=== PATIENT | male | born 1970 | race Caucasian/White ===

== ENCOUNTER 2018-09-11 08:10 | Inpatient (IN) | payer BC, SELFPAY ==
[2018-09-11] MEDS ORDERED: NA CHLORIDE 0.9% 1,000 ML ONE ×2 (09:05→12:06)
[2018-09-11] MEDS ORDERED: ONDANSETRON 4 MG/2 ML VIAL ONE ×2 (09:05→16:36)
[2018-09-11] MEDS ORDERED: FENTANYL CITR 100 MCG/2 ML ONE (09:05)
[2018-09-11 09:41] LABS: Urine Blood TRACE (NEG); Urine Glucose NEGATIVE (NEG); Urine Protein NEGATIVE (NEG)
[2018-09-11 09:47] LABS: Absolute Lymphocytes (CBC) 1.9 K/uL (0.7-4.9); Absolute Monocytes 0.7 K/uL (0.1-1.3); Absolute Neutrophil 8.3 K/uL (1.8-8.0); Basophils % 0.5 % (0-1.3); Eosinophils % 1.6 % (0-4.4); Hematocrit 49.6 % (39.6-49.0); Lymphocytes % 16.9 % (15.3-44.8); MCH 32.1 pg (27.0-35.0); MCV 94.3 fL (80-100); MPV 8.1 fL (7.6-11.3); Monocytes % 6.5 % (3.3-12.3); RBC Red Blood Cell Count 5.26 M/uL (4.33-5.43)
[2018-09-11 10:09] LABS: ALT/SGPT 26 U/L (12-78); AST/SGOT 18 U/L (15-37); Albumin 3.5 g/dL (3.4-5.0); Alkaline Phosphatase 67 U/L (45-117); BUN Blood Urea Nitrogen 9 mg/dL (7-18); Bicarbonate 27 mmol/L (21-32); Bilirubin Direct 0.2 mg/dL (0-0.2); Bilirubin Total 0.6 mg/dL (0.2-1.0); Glucose Level 95 mg/dL (74-106); Lipase 68 U/L (73-393); Potassium 3.9 mmol/L (3.5-5.1); Protein, Total 7.1 g/dL (6.4-8.2); Sodium Level 136 mmol/L (136-145)
--- NOTE | 2018-09-11 11:31 | RAD REPORT ---
EXAM DESCRIPTION: CT - Abdomen Pelvis W Contrast - 09/11/2018 10:56 am CLINICAL HISTORY: Abdominal pain, suprapubic pain COMPARISON: CT dissection imaging January 2014 TECHNIQUE: Biphasic, helical CT imaging of the abdomen and pelvis was performed following 100 ml non -ionic IV contrast. Oral contrast was given. All CT scans are performed using dose optimization technique as appropriate and may include automated exposure control or mA/KV adjustment according to patient size. FINDINGS: No suspicious findings in the lung bases. Liver shows diffuse fatty infiltration pattern with no focal liver lesion. Spleen and pancreas show n o acute findings. Accessory splenic nodules are present. Gallbladder and biliary tree are also withou t suspicious finding. Symmetric renal function is seen with no hydronephrosis or suspicious renal mass. No pyelonephritis o r acute renal parenchymal process. Urinary bladder is contracted. No prostate gland or seminal vesicl e abnormality. Phleboliths are present. No gastric dilatation or wall thickening. No acute small bowel finding. The appendix is normal. From cecum through descending colon no acute colon process seen. In the mid sigmoid colon there is a 3 rachell timeter long segment showing irregular circumferential wall thickening. There is edematous/inflammato ry stranding in the surrounding fat with a small amount of extraluminal air adjacent to the involved colon. More distally the rectum and distal sigmoid colon show no acute findings. Patient has minimal diverticulosis identifiable. No free fluid. No abscess identified. No other site of extraluminal air or inflammatory stranding. No hernia, mass or bulky lymphadenopathy. No adrenal abnormality. No suspicious bony findings. IMPRESSION: Approximately 3 centimeter long segment of sigmoid colon showing irregular circumferenti al wall thickening, adjacent edematous/ inflammatory stranding and a small extraluminal air collectio n adjacent to the involved sigmoid colon. No abscess or distant free air. No extravasation of bowel content visible. Patient has very minimal diverticulosis; however, acute diverticulitis would be the most likely etiol ogy. Infectious colitis is possible. Colon malignancy with contained perforation is a differential co nsideration. Follow-up colonoscopy after medical management of diverticulitis is recommended. Fatty infiltration of the liver.
[2018-09-11] MEDS ORDERED: MEPERIDINE HCL 50 MG/ML AMP ONE (11:40)
--- NOTE | 2018-09-11 11:45 | ER ---
Nurse's Notes [facility] Name: Darvin Paris Age: 48 yrs Sex: Male : 1970 Arrival Date: 09/11/2018 Time: 08:15 Bed 20 Private MD: None, None Diagnosis: Diverticulitis of small intestine without perforation or abscess without bleeding Presentation: 09/11 08:15 Presenting complaint: Patient states: suprapubic pain that began . Pt denies aa5 urinary symptoms, denies N/V/D. 08:15 Transition of care: patient was not received from another setting of care. Onset of aa5 symptoms was August 2018. Risk Assessment: Do you want to hurt yourself or someone else? Patient reports no desire to harm self or others. Initial Sepsis Screen: Does the patient meet any 2 criteria? No. Patient's initial sepsis screen is negative. Does the patient have a suspected source of infection? No. Patient's initial sepsis screen is negative. Care prior to arrival: None. 08:15 Method Of Arrival: Ambulatory aa5 08:15 Acuity: RICHARD 3 aa5 Historical: - Allergies: 08:15 PENICILLINS; aa5 - Home Meds: 08:15 None [Active]; aa5 - PMHx: 08:15 None; aa5 - PSHx: 08:15 Achilles tendon repair; Right hand; aa5 - Immunization history:: Flu vaccine is not up to date. - Social history:: Smoking status: Patient uses tobacco products, smokes one pack cigarettes per day. - Ebola Screening: : No symptoms or risks identified at this time. Screenin:18 Abuse screen: Denies threats or abuse. Denies injuries from another. Nutritional bp screening: No deficits noted. Tuberculosis screening: No symptoms or risk factors identified. Fall Risk None identified. Assessment: 08:30 General: Appears in no apparent distress. uncomfortable, Behavior is calm, cooperative, bp appropriate for age. Pain: Complains of pain in right lower quadrant. Neuro: Level of Consciousness is awake, alert, obeys commands, Oriented to person, place, time, situation, Appropriate for age. Cardiovascular: No deficits noted. Respiratory: Airway is patent Respiratory effort is even, unlabored, Respiratory pattern is regular, symmetrical. GI: Bowel sounds present X 4 quads. Abd is soft X 4 quads Abdomen is tender to palpation in suprapubic area and right lower quadrant. : No signs and/or symptoms were reported regarding the genitourinary system. EENT: No deficits noted. Derm: No deficits noted. Musculoskeletal: Circulation, motion, and sensation intact. Range of motion: intact in all extremities. 09:16 Reassessment: PO CONTRAST COMPLETED, CT NOTIFIED. bp 10:49 Reassessment: PT TO CT WITH BANQUET LINE COOK. bp 12:30 Reassessment: ADMIT FOR DIVERTICULITIS IN PROCESS. bp 14:20 Reassessment: VS STABLE ON MONITOR, NO ACUTE S/S AT THIS TIME. bp Vital Signs: 08:18 BP 165 / 93; Pulse 79; Resp 16 S; Temp 98.1(O); Pulse Ox 99% on R/A; Weight 81.65 kg aa5 (R); Height 5 ft. 9 in. (175.26 cm) (R); Pain 8/10; 09:45 BP 146 / 110; Pulse 80; Resp 16; Pulse Ox 97% ; bp 10:50 BP 160 / 108; Pulse 84; Resp 16; Pulse Ox 98% ; bp 12:30 BP 153 / 92; Pulse 83; Resp 16; Pulse Ox 95% ; bp 14:19 BP 135 / 100; Pulse 95; Resp 14; Pulse Ox 99% ; bp 08:18 Body Mass Index 26.58 (81.65 kg, 175.26 cm) aa5 ED Course: 08:15 Patient arrived in ED. mr 08:15 None, None is Private Physician. mr 08:15 Arm band placed on. aa5 08:15 Patient placed in an exam room, on a stretcher. aa5 08:16 Vitaliy Castro, TIFFANIE is Primary Nurse. bp 08:18 Nikolay Bowie PA is PHCP. jr8 08:18 Triage completed. aa5 08:19 Pelon Rollins MD is Attending Physician. jr8 09:16 Inserted saline lock: 20 gauge in right antecubital area, using aseptic technique. bp Blood collected. 09:18 Patient has correct armband on for positive identification. Placed in gown. Bed in low bp position. Call light in reach. Side rails up X2. 10:53 CT completed. Patient moved to CT via wheelchair. Patient moved back from CT. cw1 10:56 CT Abd/Pelvis - W/Contrast In Process Unspecified. EDMS 11:44 Alex Lin MD is Hospitalizing Provider. jr8 18:00 No provider procedures requiring assistance completed. Patient admitted, IV remains in bp place. Administered Medications: 09:19 Drug: fentaNYL (PF) 50 mcg Route: IVP; Site: right antecubital; bp 10:48 Follow up: Response: Pain is decreased bp 09:19 Drug: Zofran 4 mg Route: IVP; Site: right antecubital; bp 10:49 Follow up: Response: Nausea is decreased bp 09:19 Drug: NS 0.9% 1000 ml Route: IV; Rate: 1000 ml; Site: right antecubital; bp 11:00 Follow up: IV Status: Completed infusion; IV Intake: 1000ml bp 10:50 Drug: fentaNYL (PF) 50 mcg Route: IVP; Site: right antecubital; bp 11:38 Follow up: Response: Pain is decreased bp 11:39 Drug: Demerol 50 mg Route: IVP; Site: right antecubital; bp 11:46 Follow up: Response: Pain is decreased bp 11:45 Drug: Ciprofloxacin 400 mg Volume: 200 ml; Route: IVPB; Infused Over: 60 mins; Site: bp right antecubital; 12:45 Follow up: IV Status: Completed infusion; IV Intake: 200ml bp 11:50 Drug: NS 0.9% 1000 ml Route: IV; Rate: 100 ml/hr; Site: right antecubital; bp 16:27 Follow up: IV Status: Infusion continued upon admission bp 13:00 Drug: Flagyl 500 mg Volume: 100 ml; Route: IVPB; Rate: 200 ml/hr; Infused Over: 30 bp mins; Site: right antecubital; 14:00 Follow up: IV Status: Completed infusion; IV Intake: 100ml bp Intake: 11:00 IV: 1000ml; Total: 1000ml. bp 12:45 IV: 200ml; Total: 1200ml. bp 14:00 IV: 100ml; Total: 1300ml. bp Outcome: 11:44 Decision to Hospitalize by Provider. jr8 18:00 Admitted to Med/surg accompanied by tech, via wheelchair, room 420, with chart, Report bp called to ELENI MORENO 18:00 Condition: stable 18:00 Instructed on the need for admit. 18:06 Patient left the ED. bp Signatures: Dispatcher [employer] IWRIN RiosCeli SowAngelika rice, RN RN aa5 Myriam Mendosa cw1 Nikolay Bowie PA PA jr8 Vitaliy Castro, TIFFANIE RN bp Corrections: (The following items were deleted from the chart) 08:24 08:22 Triage completed. aa5 aa5
--- NOTE | 2018-09-11 11:45 | EDPHYS ---
Physician Documentation [facility] Name: Darvin Paris Age: 48 yrs Sex: Male : 1970 Arrival Date: 09/11/2018 Time: 08:15 Bed 20 Private MD: None, None ED Physician Pelon Rollins HPI: 09/11 08:50 This 48 yrs old Male presents to ER via Ambulatory with complaints of jr8 Abdominal Pain. 08:50 The patient presents with abdominal pain in the lower abdomen. Onset: The jr8 symptoms/episode began/occurred acutely, 2 day(s) ago. The symptoms do not radiate. Associated signs and symptoms: Pertinent positives: fever, Pertinent negatives: nausea, vomiting, and diarrhea. The symptoms are described as sharp, stabbing, waxing/waning. Modifying factors: The symptoms are alleviated by nothing, the symptoms are aggravated by nothing. Severity of pain: At its worst the pain was moderate in the emergency department the pain is unchanged. The patient has not experienced similar symptoms in the past. The patient has not recently seen a physician. Historical: - Allergies: 08:15 PENICILLINS; aa5 - Home Meds: 08:15 None [Active]; aa5 - PMHx: 08:15 None; aa5 - PSHx: 08:15 Achilles tendon repair; Right hand; aa5 - Immunization history:: Flu vaccine is not up to date. - Social history:: Smoking status: Patient uses tobacco products, smokes one pack cigarettes per day. - Ebola Screening: : No symptoms or risks identified at this time. ROS: 08:50 Eyes: Negative for injury, pain, redness, and discharge, ENT: Negative for injury, jr8 pain, and discharge, Neck: Negative for injury, pain, and swelling, Cardiovascular: Negative for chest pain, palpitations, and edema, Respiratory: Negative for shortness of breath, cough, wheezing, and pleuritic chest pain, Back: Negative for injury and pain, MS/Extremity: Negative for injury and deformity, Skin: Negative for injury, rash, and discoloration, Neuro: Negative for headache, weakness, numbness, tingling, and seizure. 08:50 Abdomen/GI: Positive for abdominal pain, Negative for nausea, vomiting, and diarrhea, constipation, abdominal distension, hematemesis, black/tarry stool, rectal pain, rectal bleeding, bowel incontinence, flatulence. Exam: 08:50 Eyes: Pupils equal round and reactive to light, extra-ocular motions intact. Lids and jr8 lashes normal. Conjunctiva and sclera are non-icteric and not injected. Cornea within normal limits. Periorbital areas with no swelling, redness, or edema. ENT: Nares patent. No nasal discharge, no septal abnormalities noted. Tympanic membranes are normal and external auditory canals are clear. Oropharynx with no redness, swelling, or masses, exudates, or evidence of obstruction, uvula midline. Mucous membranes moist. Neck: Trachea midline, no thyromegaly or masses palpated, and no cervical lymphadenopathy. Supple, full range of motion without nuchal rigidity, or vertebral point tenderness. No Meningismus. Cardiovascular: Regular rate and rhythm with a normal S1 and S2. No gallops, murmurs, or rubs. Normal PMI, no JVD. No pulse deficits. Respiratory: Lungs have equal breath sounds bilaterally, clear to auscultation and percussion. No rales, rhonchi or wheezes noted. No increased work of breathing, no retractions or nasal flaring. Back: No spinal tenderness. No costovertebral tenderness. Full range of motion. Skin: Warm, dry with normal turgor. Normal color with no rashes, no lesions, and no evidence of cellulitis. MS/ Extremity: Pulses equal, no cyanosis. Neurovascular intact. Full, normal range of motion. Neuro: Awake and alert, GCS 15, oriented to person, place, time, and situation. Cranial nerves II-XII grossly intact. Motor strength 5/5 in all extremities. Sensory grossly intact. Cerebellar exam normal. Normal gait. 08:50 Abdomen/GI: Inspection: abdomen appears normal, Bowel sounds: active, all quadrants, Palpation: soft, in all quadrants, moderate abdominal tenderness, in the right lower quadrant, mass, is not appreciated, rebound tenderness, is not appreciated, voluntary guarding, is not appreciated, involuntary guarding, is not appreciated, no appreciated organomegaly, Indicators: McBurney's point is tender, Estevez's sign is negative, Rovsing's sign is negative, Obturator sign is positive, Psoas sign is positive, Liver: tenderness, is not appreciated. Vital Signs: 08:18 BP 165 / 93; Pulse 79; Resp 16 S; Temp 98.1(O); Pulse Ox 99% on R/A; Weight 81.65 kg aa5 (R); Height 5 ft. 9 in. (175.26 cm) (R); Pain 8/10; 09:45 BP 146 / 110; Pulse 80; Resp 16; Pulse Ox 97% ; bp 10:50 BP 160 / 108; Pulse 84; Resp 16; Pulse Ox 98% ; bp 12:30 BP 153 / 92; Pulse 83; Resp 16; Pulse Ox 95% ; bp 14:19 BP 135 / 100; Pulse 95; Resp 14; Pulse Ox 99% ; bp 08:18 Body Mass Index 26.58 (81.65 kg, 175.26 cm) aa5 MDM: 08:19 Patient medically screened. 8 11:43 Data reviewed: vital signs, nurses notes, lab test result(s), radiologic studies, CT jr8 scan, and as a result, I will admit patient. Data interpreted: Pulse oximetry: on room air is 98 %. Interpretation: normal. Counseling: I had a detailed discussion with the patient and/or guardian regarding: the historical points, exam findings, and any diagnostic results supporting the discharge/admit diagnosis, lab results, radiology results, the need for further work-up and treatment in the hospital. Physician consultation: Alex Lin MD was called at 11:44, was contacted at 11:44, regarding admission, to the medical/surgical unit. and will see patient. 09/11 08:52 Order name: Basic Metabolic Panel; Complete Time: 10:40 [facility] 09/11 08:52 Order name: CBC with Diff; Complete Time: 09:55 8 09/11 08:52 Order name: Creatinine for Radiology; Complete Time: 10:40 8 09/11 08:52 Order name: Hepatic Function; Complete Time: 10:40 8 09/11 08:52 Order name: Lipase; Complete Time: 10:40 [facility] 09/11 09:22 Order name: Urine Dipstick--Ancillary (enter results); Complete Time: 09:42 eb 09/11 08:53 Order name: CT Abd/Pelvis - W/Contrast; Complete Time: 11:35 8 09/11 08:52 Order name: IV Saline Lock; Complete Time: 09:19 09/11 08:52 Order name: Labs collected and sent; Complete Time: 09/11 08:52 Order name: Urine Dipstick-Ancillary (obtain specimen); Complete Time: 09/11 12:00 Order name: CONS Physician Consult EDMS Administered Medications: : Drug: fentaNYL (PF) 50 mcg Route: IVP; Site: right antecubital; bp 10:48 Follow up: Response: Pain is decreased bp 09:19 Drug: Zofran 4 mg Route: IVP; Site: right antecubital; bp 10:49 Follow up: Response: Nausea is decreased bp 09:19 Drug: NS 0.9% 1000 ml Route: IV; Rate: 1000 ml; Site: right antecubital; bp 11:00 Follow up: IV Status: Completed infusion; IV Intake: 1000ml bp 10:50 Drug: fentaNYL (PF) 50 mcg Route: IVP; Site: right antecubital; bp 11:38 Follow up: Response: Pain is decreased bp 11:39 Drug: Demerol 50 mg Route: IVP; Site: right antecubital; bp 11:46 Follow up: Response: Pain is decreased bp 11:45 Drug: Ciprofloxacin 400 mg Volume: 200 ml; Route: IVPB; Infused Over: 60 mins; Site: bp right antecubital; 12:45 Follow up: IV Status: Completed infusion; IV Intake: 200ml bp 11:50 Drug: NS 0.9% 1000 ml Route: IV; Rate: 100 ml/hr; Site: right antecubital; bp 16:27 Follow up: IV Status: Infusion continued upon admission bp 13:00 Drug: Flagyl 500 mg Volume: 100 ml; Route: IVPB; Rate: 200 ml/hr; Infused Over: 30 bp mins; Site: right antecubital; 14:00 Follow up: IV Status: Completed infusion; IV Intake: 100ml bp Disposition: 09/11/18 11:44 Hospitalization ordered by Alex Lin for Inpatient Admission. Preliminary diagnosis is Diverticulitis of small intestine without perforation or abscess without bleeding. - Bed requested for Telemetry/MedSurg (Inpatient). - Status is Inpatient Admission. bp - Condition is Stable. - Problem is new. - Symptoms have improved. UTI on Admission? No Addendum: 09/13/2018 15:16 Co-signature as Attending Physician, Pelon Rollins MD. g s Signatures: Dispatcher [employer] EDMS Angelika Sow, RN RN aa5 Nikolay Bowie PA PA jr8 Pelon Rollins MD MD Vitaliy Castro, RN RN bp Tamara Honeycutt Corrections: (The following items were deleted from the chart) 09/11 17:00 11:44 Hospitalization Ordered by Alex Lin MD for Inpatient Admission. eb Preliminary diagnosis is Diverticulitis of small intestine without perforation or abscess without bleeding. Bed requested for Telemetry/MedSurg (Inpatient). Status is Inpatient Admission. Condition is Stable. Problem is new. Symptoms have improved. UTI on Admission? No. jr8 18:06 17:00 09/11/2018 11:44 Hospitalization Ordered by Alex Lin MD for Inpatient bp Admission. Preliminary diagnosis is Diverticulitis of small intestine without perforation or abscess without bleeding. Bed requested for Telemetry/MedSurg (Inpatient). Status is Inpatient Admission. Condition is Stable. Problem is new. Symptoms have improved. UTI on Admission? No. eb
[2018-09-11] MEDS ORDERED: METRONIDAZOLE 500mg IVPB 500 MG/100 ML BAG IV ONE ×2 (12:06→16:36)
[2018-09-11] MEDS ORDERED: CIPROFLOXACIN 400mg IV 400 MG/200 ML BAG IV ONE (12:06)
[2018-09-11] MEDS ORDERED: ONDANSETRON 4 MG/2 ML VIAL IV PRN ×2 (14:03→18:08)
[2018-09-11] MEDS: METRONIDAZOLE 500mg IVPB 500 MG/100 ML BAG IV SCH (16:35)
[2018-09-11] MEDS: MORPHINE 4 MG/ML SYR IM PRN ×2 (16:35→21:32)
[2018-09-11] MEDS ORDERED: MORPHINE 4 MG/ML SYR ONE (16:36)
[2018-09-11] MEDS ORDERED: INFLUENZA VACCINE (for 3y+) 0.5 ML DOSE IMVAC ONE (17:00)
[2018-09-11] MEDS: NA CHLORIDE 0.9% 1,000 ML IV SCH (18:19)
[2018-09-11] MEDS: CIPROFLOXACIN 400mg IV 400 MG/200 ML BAG IV SCH (20:09)
[2018-09-11] MEDS: ACETAMINOPHEN 325 MG TABLET PO PRN (20:09)
[2018-09-11] MEDS ORDERED: CIPROFLOXACIN 400mg IV 400 MG/200 ML BAG IV SCH (21:00)
[2018-09-12] MEDS: METRONIDAZOLE 500mg IVPB 500 MG/100 ML BAG IV SCH ×3 (00:36→16:58)
[2018-09-12] MEDS: NA CHLORIDE 0.9% 1,000 ML IV SCH ×3 (00:37→16:58)
[2018-09-12] MEDS: ACETAMINOPHEN 325 MG TABLET PO PRN ×4 (01:51→17:12)
[2018-09-12] MEDS: MORPHINE 4 MG/ML SYR IM PRN (02:47)
--- NOTE | 2018-09-12 04:24 | P.HP ---
Certification for Inpatient Patient admitted to: Inpatient With expected LOS: >2 Midnights Patient will require the following post-hospital care: None Practitioner: I am a practitioner with admitting privileges, knowledge of patient current condition, hospital course, and medical plan of care. Services: Services provided to patient in accordance with Admission requirements found in Title 42 Section 412.3 of the Code of Federal Regulations Patient History Date of Service: 09/11/18 Reason for admission: Abdominal pain History of Present Illness: Patient is a 40-year-old gentleman who came into the hospital with abdominal discomfort. Pain was mainly in the right lower quadrant. Patient had fever, shakes, and chills. Patient was having nausea and vomiting. Patient states he was having some discomfort 2 days ago in his symptoms have gradually worsened. CT in the emergency room revealed colitis. Patient was admitted to the hospital and will need IV antibiotics. Patient will also need IV hydration. Patient will need outpatient colonoscopy. Start clear liquid diet in the morning. Allergies No Known Allergies Allergy (Verified 09/11/18 13:22) Home Medications: NK [No Home Meds] 09/11/18 - Past Medical/Surgical History Past Medical History: Patient denies medical history Past Surgical History: Patient denies surgical history - Family History Father Family History: Reviewed- Non-Contributory - Social History Smoking Status: Never smoker Alcohol use: No CD- Drugs: No Place of Residence: Home Review of Systems 10-point ROS is otherwise unremarkable Physical Examination - Vital Signs Temperature: 98.6 F Blood Pressure: 114/62 Pulse: 78 Respirations: 18 Pulse Ox (%): 97 - Physical Exam General: Alert, In no apparent distress, Oriented x3 HEENT: Atraumatic, PERRLA, Mucous membr. moist/pink, EOMI, Sclerae nonicteric Neck: Supple, 2+ carotid pulse no bruit, No LAD, Without JVD or thyroid abnormality Respiratory: Clear to auscultation bilaterally, Normal air movement Cardiovascular: Regular rate/rhythm, Normal S1 S2, No murmurs Gastrointestinal: Normal bowel sounds, Soft and benign, No rebound, No guarding , Distended, Tenderness Musculoskeletal: No clubbing, No swelling, No tenderness Integumentary: No rashes Neurological: Normal gait, Normal speech, Normal strength at 5/5 x4 extr, Normal tone, Sensation intact, Cranial nerves 3-12 intact, Normal affect Lymphatics: No axilla or inguinal lymphadenopathy - Studies Laboratory Data (last 24 hrs) 09/11/18 09:15: Creatinine 0.90 09/11/18 09:15: WBC 11.1 H, Hgb 16.9, Hct 49.6 H, Plt Count 168 09/11/18 09:15: Sodium 136, Potassium 3.9, BUN 9, Creatinine 0.90, Glucose 95, Total Bilirubin 0.6, AST 18, ALT 26, Alkaline Phosphatase 67, Lipase 68 L Assessment & Plan - Problems (Diagnosis) (1) Diverticulitis Current Visit: Yes Status: Acute - Plan 1. Continue with IV hydration 2. Continue with IV antibiotics 3. Continue with pain control 4. NPO; clear liquid diet in morning 5. General surgery consultation; outpatient colonoscopy in 6-12 weeks 6. Serial H&H, and we will monitor CBC, BMP, LFTs and lipase along with electrolytes. 7. GI and DVT prophylaxis - Advance Directives Does patient have a Living Will: No Does patient have a Durable POA for Healthcare: No - Code Status/Comfort Care Code Status Assessed: Yes Code Status: Full Code Critical Care: No Time Spent Managing PTS Care (In Minutes): 50
[2018-09-12] MEDS: CIPROFLOXACIN 400mg IV 400 MG/200 ML BAG IV SCH ×2 (08:01→20:21)
[2018-09-12] MEDS ORDERED: MEPERIDINE HCL 25 MG/0.5 ML IVP PRN (12:41)
[2018-09-12 13:28] LABS: Absolute Lymphocytes (CBC) 1.6 K/uL (0.7-4.9); Absolute Monocytes 0.9 K/uL (0.1-1.3); Absolute Neutrophil 9.5 K/uL (1.8-8.0); Basophils % 0.5 % (0-1.3); Eosinophils % 1.2 % (0-4.4); Hematocrit 44.1 % (39.6-49.0); Lymphocytes % 12.8 % (15.3-44.8); MCV 94.3 fL (80-100); Monocytes % 7.3 % (3.3-12.3); RBC Red Blood Cell Count 4.68 M/uL (4.33-5.43)
[2018-09-12 13:47] LABS: ALT/SGPT 21 U/L (12-78); AST/SGOT 13 U/L (15-37); Albumin 3.1 g/dL (3.4-5.0); Alkaline Phosphatase 55 U/L (45-117); BUN Blood Urea Nitrogen 7 mg/dL (7-18); Bicarbonate 26 mmol/L (21-32); Bilirubin Total 0.9 mg/dL (0.2-1.0); Glucose Level 102 mg/dL (74-106); Protein, Total 6.5 g/dL (6.4-8.2); Sodium Level 133 mmol/L (136-145)
--- NOTE | 2018-09-12 20:45 | PN ---
Subjective: The patient currently lying in bed. He is complaining of significant abdominal pain in the epigastric area. He is on thin liquids. He has no nausea and no vomiting. He is not able to to lerate morphine due to the headache. No bowel movement this morning. Review of Systems: Otherwise, negative. Physical Examination: VITAL SIGNS: Blood pressure is 124/78, respiratory rate 18, pulse 78, temperature 100.7. GENERAL: The patient is alert and oriented x3. Does not look in any distress. HEENT: Atraumatic, normocephalic. PERRLA. Oral mucosa is moist. NECK: Supple. No JVD. No bruits. CHEST: Clear to auscultation. Good air entry. HEART: Regular rate and rhythm. S1, S2 normal. No gallop or murmur. ABDOMEN: Soft with diffuse tenderness to palpation. There is no guarding or rebound. Positive eduin l sounds. EXTREMITIES: No clubbing, cyanosis, or edema. No calf tenderness. NEUROLOGIC: Grossly intact. Cranial nerve 2 through 12 intact. Normal sensation. Normal reflexes. Normal muscle strength. Laboratory Data: Labs this morning pending. Yesterday, his white blood cells were at 11.1. Otherwi se, the rest of his labs were fine. Assessment And Plan: 1.Acute onset of . At this point, we will continue the patient on IV fluids. Continue IV antibiotic with Cipro and Flagyl and continue hydration with IV fluids. 2.Abdominal pain likely secondary to diverticulitis. The patient will be continued on pain medicati on. I will switch his morphine to demerol. 3.Clear liquid diet if the patient tolerates diet, we will continue. 4.Symptomatic treatment for nausea if needed . 5.DVT prophylaxis. The patient is young, I will not start him on Lovenox at this point. LONG/ALBAN Voice ID: [id number] Report ID: [id number]
[2018-09-12] MEDS: MEPERIDINE HCL 50 MG/ML AMP IV PRN (20:56)
--- NOTE | 2018-09-12 22:00 | P.CNS ---
Date of Consult: 09/12/18 PC: This 48-year-old male presents emergency room with severe lower abdominal pain for diagnosis and treatment. HPC: Patient been at home, but psyllium began to feel the sensation in the lower portion of his abdomen just below the umbilicus of intense pressure and hard cramping abdominal pain. Pain has been constant since then. Describes it as sharp, radiating into his back. PMH: Negative PSHx: Denies any prior surgery SOC: No known allergy SYS REVIEW: No cough, wheeze, shortness of breath. No chest pain or palpitations. Never experienced any pain like this before. No nausea or vomiting, no diarrhea O/E awake alert on come HEENT: No evidence of jaundice Chest: Chest movement equal bilaterally ABD: Soft but does have tenderness in the region between the pubic bone and the umbilicus LOCO: Intact DATA: Elevated white cell count, CT scan demonstrates microperforation of the sigmoid coal IMPRESSION: Diverticulitis with micro perforation, no evidence of any abscess or free fluid PLAN: Patient is currently on antibiotics, I will let him have have limited clear liquids, he is on IV antibiotics and feels better today but is still in significant discomfort. I have also changed his pain medicines so he gets some effective relief from his discomfort.
[2018-09-13] MEDS: METRONIDAZOLE 500mg IVPB 500 MG/100 ML BAG IV SCH ×3 (00:20→17:39)
[2018-09-13] MEDS: MEPERIDINE HCL 50 MG/ML AMP IV PRN ×4 (03:39→20:33)
[2018-09-13] MEDS: NA CHLORIDE 0.9% 1,000 ML IV SCH ×3 (03:46→17:36)
[2018-09-13 04:22] LABS: Absolute Lymphocytes (CBC) 1.5 K/uL (0.7-4.9); Absolute Monocytes 0.8 K/uL (0.1-1.3); Absolute Neutrophil 8.1 K/uL (1.8-8.0); Basophils % 0.7 % (0-1.3); Eosinophils % 1.9 % (0-4.4); Hematocrit 41.4 % (39.6-49.0); Lymphocytes % 14.3 % (15.3-44.8); MCH 32.6 pg (27.0-35.0); MCV 93.5 fL (80-100); MPV 8.2 fL (7.6-11.3); Monocytes % 7.7 % (3.3-12.3); RBC Red Blood Cell Count 4.42 M/uL (4.33-5.43)
[2018-09-13 04:35] LABS: ALT/SGPT 19 U/L (12-78); AST/SGOT 12 U/L (15-37); Alkaline Phosphatase 51 U/L (45-117); BUN Blood Urea Nitrogen 7 mg/dL (7-18); Bicarbonate 24 mmol/L (21-32); Bilirubin Total 1.1 mg/dL (0.2-1.0); Glucose Level 86 mg/dL (74-106); Protein, Total 6.4 g/dL (6.4-8.2); Sodium Level 136 mmol/L (136-145)
[2018-09-13] MEDS: CIPROFLOXACIN 400mg IV 400 MG/200 ML BAG IV SCH ×2 (08:27→20:39)
--- NOTE | 2018-09-13 16:58 | P.PN ---
Date of Service: 09/13/18 S: Patient feels much better today, no longer has the burning pain, fine disease review get up and move around today. Tolerating a full liquid diet. Pain is much better controlled with the Demerol. O: Vital signs remain stable, patient is afebrile has not had any temperature fever for last 24 hr. Abdomen is soft, minimal does come A: Surgically much improved P: Will advance to regular diet in the a.m.. If tolerated may be candid for early discharge on oral antibiotics.
--- NOTE | 2018-09-13 18:25 | P.PN ---
Subjective Date of Service: 09/13/18 Chief Complaint: Abdominal pain Patient seen and examined at bedside. Case discussed with nursing staff. Reports improved abdominal pain. Review of Systems As noted above Physical Examination - Vital Signs Temperature: 98.8 F Blood Pressure: 131/75 Pulse: 77 Respirations: 18 Pulse Ox (%): 96 - Physical Exam General: Alert, In no apparent distress HEENT: Atraumatic, PERRLA, EOMI Neck: Supple, JVD not distended Respiratory: Clear to auscultation bilaterally, Normal air movement Cardiovascular: Regular rate/rhythm, Normal S1 S2 Gastrointestinal: Normal bowel sounds, Tenderness (Diffuse, mild) Musculoskeletal: No tenderness Integumentary: No rashes Neurological: Normal speech, Normal tone, Normal affect Lymphatics: No axilla or inguinal lymphadenopathy Assessment And Plan - Plan Acute diverticulitis: Continue IV fluids, IV antibiotics with Cipro and Flagyl. Advance diet as tolerated. - abdominal pain likely secondary to diverticulitis. Pain control with Demerol - Zofran for nausea - surgeon consulted, recommendations appreciated.
[2018-09-14] MEDS: METRONIDAZOLE 500mg IVPB 500 MG/100 ML BAG IV SCH ×3 (00:39→17:40)
[2018-09-14] MEDS: MEPERIDINE HCL 50 MG/ML AMP IV PRN ×3 (02:26→20:34)
[2018-09-14] MEDS: NA CHLORIDE 0.9% 1,000 ML IV SCH ×3 (06:36→17:42)
[2018-09-14] MEDS: CIPROFLOXACIN 400mg IV 400 MG/200 ML BAG IV SCH ×2 (09:18→20:33)
[2018-09-14 11:24] LABS: ALT/SGPT 22 U/L (12-78); AST/SGOT 20 U/L (15-37); Albumin 3.3 g/dL (3.4-5.0); Alkaline Phosphatase 56 U/L (45-117); BUN Blood Urea Nitrogen 6 mg/dL (7-18); Bicarbonate 26 mmol/L (21-32); Bilirubin Total 0.8 mg/dL (0.2-1.0); Glucose Level 106 mg/dL (74-106); Potassium 4.1 mmol/L (3.5-5.1); Protein, Total 7.1 g/dL (6.4-8.2); Sodium Level 137 mmol/L (136-145)
--- NOTE | 2018-09-14 14:28 | P.PN ---
Date of Service: 09/14/18 S: Patient continues to improve. Was started on a soft GI diet but had recurrence of his cramping pain. Will back off to full liquids again. He remains afebrile O: Vital signs are stable, white cell count coming back to normal. Abdominal exam minimal lower abdominal tenderness A: Surgically stable P: Continue conservative therapy. Will not require surgery during this hospital stay. The discharge when tolerating regular diet on oral medications.
--- NOTE | 2018-09-14 17:13 | P.PN ---
Subjective Date of Service: 09/14/18 Chief Complaint: Abdominal pain Patient seen and examined at bedside. Case discussed with nursing staff. Reports improved abdominal pain. Review of Systems As noted above Physical Examination - Vital Signs Temperature: 98.0 F Blood Pressure: 140/70 Pulse: 76 Respirations: 18 Pulse Ox (%): 95 - Physical Exam General: Alert, In no apparent distress HEENT: Atraumatic, PERRLA, EOMI Neck: Supple, JVD not distended Respiratory: Clear to auscultation bilaterally, Normal air movement Cardiovascular: Regular rate/rhythm, Normal S1 S2 Gastrointestinal: Normal bowel sounds, Tenderness, Guarding Musculoskeletal: No tenderness Integumentary: No rashes Neurological: Normal speech, Normal tone, Normal affect Lymphatics: No axilla or inguinal lymphadenopathy Assessment And Plan - Plan Acute diverticulitis: Continue IV fluids, IV antibiotics with Cipro and Flagyl. Tried regular diet this morning, unable to tolerate times was having abdominal cramping and nausea. Will change to soft diet, Advance diet as tolerated. - abdominal pain likely secondary to diverticulitis. Pain control with Demerol - Zofran for nausea - surgeon consulted, recommendations appreciated. Disposition: Medical management, likely no surgical intervention during this hospitalization. Pending symptomatic improvement
[2018-09-15] MEDS: NA CHLORIDE 0.9% 1,000 ML IV SCH ×2 (00:11→10:08)
[2018-09-15] MEDS: METRONIDAZOLE 500mg IVPB 500 MG/100 ML BAG IV SCH ×2 (00:11→08:25)
[2018-09-15] MEDS: CIPROFLOXACIN 400mg IV 400 MG/200 ML BAG IV SCH (08:26)
[2018-09-15] MEDS: MEPERIDINE HCL 50 MG/ML AMP IV PRN (10:59)
--- NOTE | 2018-09-15 14:46 | P.DS ---
Admission Date: 09/11/18 Discharge Date: 09/15/18 Disposition: ROUTINE DISCHARGE Discharge Condition: GOOD Reason for Admission: Abdominal pain Consultations: General Surgery, Dr. Burch Brief History of Present Illness: Patient is a 40-year-old gentleman who came into the hospital with abdominal discomfort. Pain was mainly in the right lower quadrant. Patient had fever, shakes, and chills. Patient was having nausea and vomiting. Patient states he was having some discomfort 2 days ago in his symptoms have gradually worsened. CT in the emergency room revealed colitis. Patient was admitted to the hospital and will need IV antibiotics. Patient will also need IV hydration. Patient will need outpatient colonoscopy. Start clear liquid diet in the morning. Hospital Course: Patient was admitted for acute diverticulitis. He was started on IV fluids, IV antibiotics with Cipro and Flagyl. His pain was controlled with IV pain medication. He was kept NPO on admission. General surgery was consulted, no surgical intervention was planned inpatient. He will need outpatient colonoscopy in 6-12 weeks. His electrolytes, lipase and LFTs were monitored along with this H&H. He remained stable otherwise throughout the hospitalization. The he was started on a clear liquid diet, advanced to full and eventually to soft diet. At the time of discharge, he was tolerating a GI soft diet without any abdominal cramping pain or nausea/vomiting. He was instructed to follow up with Dr. Sarah outpatient for a colonoscopy in 6-12 weeks. Vital Signs/Physical Exam: Temp Pulse Resp BP Pulse Ox 98.6 F 78 18 140/101 H 94 09/15/18 12:00 09/15/18 12:00 09/15/18 12:00 09/15/18 12:00 09/15/18 12:00 General: Alert, In no apparent distress HEENT: Atraumatic, PERRLA, EOMI Neck: Supple, JVD not distended Respiratory: Clear to auscultation bilaterally, Normal air movement Cardiovascular: Regular rate/rhythm, Normal S1 S2 Gastrointestinal: Normal bowel sounds, No tenderness Musculoskeletal: No tenderness Integumentary: No rashes Neurological: Normal speech, Normal tone, Normal affect Laboratory Data at Discharge: WBC 10.7 K/uL (4.3-10.9) 09/13/18 03:39 Hgb 14.4 g/dL (13.6-17.9) 09/13/18 03:39 Hct 41.4 % (39.6-49.0) 09/13/18 03:39 Plt Count 167 K/uL (152-406) 09/13/18 03:39 Sodium 137 mmol/L (136-145) 09/14/18 10:56 Potassium 4.1 mmol/L (3.5-5.1) 09/14/18 10:56 BUN 6 mg/dL (7-18) L 09/14/18 10:56 Creatinine 0.80 mg/dL (0.55-1.3) 09/14/18 10:56 Glucose 106 mg/dL (74-106) 09/14/18 10:56 Total Bilirubin 0.8 mg/dL (0.2-1.0) 09/14/18 10:56 AST 20 U/L (15-37) 09/14/18 10:56 ALT 22 U/L (12-78) 09/14/18 10:56 Alkaline Phosphatase 56 U/L (45-117) 09/14/18 10:56 Lipase 68 U/L (73-393) L 09/11/18 09:15 Home Medications: NK [No Home Meds] 09/11/18 Patient Discharge Instructions: Please follow up with primary care physician in 1 week. Please follow up with Dr. tafoya in 6-12 weeks for outpatient colonoscopy. Diet: soft, advance as tolerated Activity: Ad noemi Physician Review: Patient Assessed, Agree with Above Assessment and Plan Time spent managing pt's care (in minutes): 50
== END 2018-09-15 16:06 | disposition home or self-care (01) | DRG 392 ==
LOC: ER 08:10 → ERHOLD 11:52 → 4TH 18:01
PROVIDERS: ADMIT Internal Medicine; ATTEND Family Medicine
DX: K57.92 Diverticulitis of intestine, part unspecified, without perforation or abscess without bleeding (principal); Z88.0 Allergy status to penicillin; F17.210 Nicotine dependence, cigarettes, uncomplicated
CPT/HCPCS: 36415; 74177; 80048; 80053; 80076; 81003; 82274; 83690; 85025; 87493; 96361; 96365; 96367; 96375; 99285; J0744; J2175; J2405; J3010; J7030; Q9967

== ENCOUNTER 2018-09-17 09:41 | Emergency (ER) | payer BC ==
[2018-09-17] MEDS ORDERED: KETOROLAC 30 MG/ML INJ ONE (10:13)
--- NOTE | 2018-09-17 10:55 | EDPHYS ---
Physician Documentation [facility] Name: Darvin Paris Age: 48 yrs Sex: Male : 1970 Arrival Date: 09/17/2018 Time: 09:43 Bed 6 Private MD: ED Physician Seven Whitney HPI: 09/17 10:05 This 48 yrs old Male presents to ER via Ambulatory with complaints of Arm rn Pain. 10:05 The patient or guardian complains of pain, that is acute. The complaints affect the rn right antecubital area. Onset: The symptoms/episode began/occurred yesterday. Modifying factors: The symptoms are alleviated by nothing. the symptoms are aggravated by nothing. Severity of symptoms: At their worst the symptoms were mild, in the emergency department the symptoms are unchanged. The patient has not experienced similar symptoms in the past. Reports admitted to hospital recently, for 5 days, for diverticulitis, noticed yesterday swelling and pain to right Antecubital region, feels firm, no hx of dvt. No trauma.. Historical: - Allergies: 09:53 PENICILLINS; bp - Home Meds: 09:53 None [Active]; bp - PMHx: 09:53 None; bp - Immunization history:: Adult Immunizations up to date. - Social history:: Smoking status: Patient/guardian denies using tobacco. - Ebola Screening: : Patient negative for fever greater than or equal to 101.5 degrees Fahrenheit, and additional compatible Ebola Virus Disease symptoms Patient denies exposure to infectious person Patient denies travel to an Ebola-affected area in the 21 days before illness onset No symptoms or risks identified at this time. - Family history:: not pertinent. - Hospitalizations: : No recent hospitalization is reported. ROS: 10:05 Constitutional: Negative for fever, chills, and weight loss, Neck: Negative for injury, rn pain, and swelling, Cardiovascular: Negative for chest pain, palpitations, and edema, Respiratory: Negative for shortness of breath, cough, wheezing, and pleuritic chest pain, MS/Extremity: + right arm pain and swelling Skin: Negative for injury, rash, and discoloration. Exam: 10:05 Constitutional: This is a well developed, well nourished patient who is awake, alert, rn and in no acute distress. Ambulatory to room without difficulty MS/ Extremity: Pulses equal, no cyanosis. Neurovascular intact. Full, normal range of motion. Equal circumference. Small area of approx 3 cm right antecubital fossa with firmness and mild erythema along vein. No swelling of rest of arm. Vital Signs: 10:00 BP 152 / 93; Pulse 113; Resp 16; Temp 99.2; Pulse Ox 97% ; Weight 79.38 kg; Height 5 bp ft. 9 in. (175.26 cm); 11:00 BP 143 / 87; Pulse 95; Resp 16; Pulse Ox 98% ; bp 10:00 Body Mass Index 25.84 (79.38 kg, 175.26 cm) bp MDM: 09:46 Patient medically screened. rn 10:53 Differential diagnosis: superficial thrombophlebitis. Data reviewed: vital signs, rn nurses notes, radiologic studies, ultrasound, and as a result, I will discharge patient. Counseling: I had a detailed discussion with the patient and/or guardian regarding: the historical points, exam findings, and any diagnostic results supporting the discharge/admit diagnosis, the need for outpatient follow up, to return to the emergency department if symptoms worsen or persist or if there are any questions or concerns that arise at home. Special discussion: I discussed with the patient/guardian in detail that at this point there is no indication for admission to the hospital. It is understood, however, that if the symptoms persist or worsen the patient needs to return immediately for re-evaluation. 11 09:59 Order name: UPPER EXTREMITY VENOUS UNILATE EDMS Administered Medications: 10:08 Drug: Ketorolac 30 mg Route: IM; Site: right deltoid; bp 11:09 Follow up: Response: Pain is decreased bp Disposition: 09/17/18 10:54 Discharged to Home. Impression: Phlebitis and superficial thrombophlebitis of right upper extremity. - Condition is Stable. - Discharge Instructions: Phlebitis. - Medication Reconciliation Form, Thank You Letter, Antibiotic Education, Prescription Opioid Use form. - Follow up: Private Physician; When: As needed; Reason: Recheck today's complaints, Re-evaluation by your physician. - Problem is new. - Symptoms have improved. Signatures: Dispatcher [employer] EDMS Seven Whitney MD MD rn Peltier, Brian RN RN bp Corrections: (The following items were deleted from the chart) 10:00 09:55 Extremity Venous Uni Ltd+[id number] ordered. EDMS EDMS 10:11 10:05 Constitutional: Negative for fever, chills, and weight loss, MS/Extremity: + rn right arm pain and swelling Skin: Negative for injury, rash, and discoloration, rn 11:11 10:54 09/17/2018 10:54 Discharged to Home. Impression: Phlebitis and superficial bp thrombophlebitis of right upper extremity. Condition is Stable. Forms are Medication Reconciliation Form, Thank You Letter, Antibiotic Education, Prescription Opioid Use. Follow up: Private Physician; When: As needed; Reason: Recheck today's complaints, Re-evaluation by your physician. Problem is new. Symptoms have improved. rn
--- NOTE | 2018-09-17 10:55 | ER ---
Nurse's Notes [facility] Name: Darvin Paris Age: 48 yrs Sex: Male : 1970 Arrival Date: 09/17/2018 Time: 09:43 Bed 6 Private MD: Diagnosis: Phlebitis and superficial thrombophlebitis of right upper extremity Presentation: 09/17 09:50 Presenting complaint: Patient states: RIGHT AC INFLAMED/PAINFUL VEIN SINCE LAST PM. bp Transition of care: patient was not received from another setting of care. Onset of symptoms is unknown. Risk Assessment: Do you want to hurt yourself or someone else? Patient reports no desire to harm self or others. Initial Sepsis Screen: Does the patient meet any 2 criteria? No. Patient's initial sepsis screen is negative. Does the patient have a suspected source of infection? No. Patient's initial sepsis screen is negative. Care prior to arrival: None. 09:50 Method Of Arrival: Ambulatory bp 09:50 Acuity: RICHARD 4 bp Triage Assessment: 09:53 General: Appears in no apparent distress. uncomfortable, Behavior is cooperative, bp appropriate for age, anxious. Pain: Complains of pain in right antecubital area. EENT: No deficits noted. Neuro: Level of Consciousness is awake, alert, obeys commands, Oriented to person, place, time, situation, Appropriate for age. Cardiovascular: No deficits noted. Respiratory: Airway is patent Respiratory effort is even, unlabored, Respiratory pattern is regular, symmetrical. GI: No signs and/or symptoms were reported involving the gastrointestinal system. : No signs and/or symptoms were reported regarding the genitourinary system. Derm: No deficits noted. Musculoskeletal: No deficits noted. Circulation, motion, and sensation intact. Range of motion: intact in all extremities. Historical: - Allergies: 09:53 PENICILLINS; bp - Home Meds: 09:53 None [Active]; bp - PMHx: 09:53 None; bp - Immunization history:: Adult Immunizations up to date. - Social history:: Smoking status: Patient/guardian denies using tobacco. - Ebola Screening: : Patient negative for fever greater than or equal to 101.5 degrees Fahrenheit, and additional compatible Ebola Virus Disease symptoms Patient denies exposure to infectious person Patient denies travel to an Ebola-affected area in the 21 days before illness onset No symptoms or risks identified at this time. - Family history:: not pertinent. - Hospitalizations: : No recent hospitalization is reported. Screenin:01 Abuse screen: Denies threats or abuse. Denies injuries from another. Nutritional bp screening: No deficits noted. Tuberculosis screening: No symptoms or risk factors identified. Fall Risk None identified. Assessment: 10:02 General: Appears in no apparent distress. uncomfortable, slender, Behavior is calm, bp cooperative, appropriate for age, SEE TRIAGE NOTE. 11:09 Reassessment: PT D/C HOME AMBULATORY, DX WITH SUPERFICIAL THROMBOPHLEBITIS. bp Vital Signs: 10:00 BP 152 / 93; Pulse 113; Resp 16; Temp 99.2; Pulse Ox 97% ; Weight 79.38 kg; Height 5 bp ft. 9 in. (175.26 cm); 11:00 BP 143 / 87; Pulse 95; Resp 16; Pulse Ox 98% ; bp 10:00 Body Mass Index 25.84 (79.38 kg, 175.26 cm) bp ED Course: 09:43 Patient arrived in ED. as 09:46 Seven Whitney MD is Attending Physician. rn 09:49 Vitaliy Castro, TIFFANIE is Primary Nurse. bp 09:52 Triage completed. bp 10:00 Arm band placed on. bp 10:01 Patient has correct armband on for positive identification. Bed in low position. Call bp light in reach. Side rails up X2. 10:43 UPPER EXTREMITY VENOUS UNILATE In Process Unspecified. EDMS 11:09 No provider procedures requiring assistance completed. Patient did not have IV access bp during this emergency room visit. Administered Medications: 10:08 Drug: Ketorolac 30 mg Route: IM; Site: right deltoid; bp 11:09 Follow up: Response: Pain is decreased bp Outcome: 10:54 Discharge ordered by . rn 11:10 Discharged to home ambulatory. bp 11:10 Condition: stable 11:10 Discharge instructions given to patient, Instructed on discharge instructions, follow up and referral plans. Demonstrated understanding of instructions, follow-up care. 11:11 Patient left the ED. bp Signatures: Dispatcher [employer] EDMS Kathleen Campbell as Seven Whitney MD MD rn Peltier, Brian, TIFFANIE RN bp
--- NOTE | 2018-09-17 12:21 | RAD REPORT ---
EXAM DESCRIPTION: RIGHT - UPPER EXTREMITY VENOUS UNILATE - 09/17/2018 10:43 am CLINICAL HISTORY: Right arm pain and swelling COMPARISON: None. TECHNIQUE: Real-time sonographic evaluation of the right upper extremity deep venous systems was per formed. FINDINGS: Normal compressibility, flow augmentation, phasic flow and spontaneous flow are identified in the right upper extremity deep venous system. No thrombus identified in the subclavian, jugular, axillary or brachial veins. Superficial basilic vein is clear. Cephalic vein at the antecubital fossa shows thrombus to be present. Vessel is noncompressible. IMPRESSION: No thrombus in the right upper extremity deep venous system. Thrombus is present in the superficial cephalic vein near the antecubital fossa.
== END 2018-09-17 11:11 | disposition home or self-care (01) ==
LOC: ER 09:41
DX: I80.8 Phlebitis and thrombophlebitis of other sites (principal)
CPT/HCPCS: 93971; 96372; 99283

== ENCOUNTER 2018-09-19 00:49 | Inpatient (IN) | payer BC ==
--- NOTE | 2018-09-19 01:11 | ER ---
Nurse's Notes [facility] Name: Darvin Paris Age: 48 yrs Sex: Male : 1970 Arrival Date: 09/19/2018 Time: 00:52 Bed 16 Private MD: Diagnosis: Diverticulitis of large intestine with perforation and abscess without bleeding Presentation: 09/19 01:15 Presenting complaint: Patient states: I was here last Thursday for diverticulitis. I jb4 went home on Thursday. The abdominal pain started last night and it is different and much worse that before. Transition of care: patient was not received from another setting of care. Onset of symptoms was September 17, 2018. Risk Assessment: Do you want to hurt yourself or someone else? Patient reports no desire to harm self or others. Initial Sepsis Screen: Does the patient meet any 2 criteria? HR > 90 bpm. Yes Does the patient have a suspected source of infection? No. Patient's initial sepsis screen is negative. Care prior to arrival: None. 01:15 Method Of Arrival: Ambulatory jb4 01:15 Acuity: RICHARD 3 jb4 Triage Assessment: 01:18 General: Appears in no apparent distress. uncomfortable, Behavior is cooperative, jb4 appropriate for age. Pain: Complains of pain in umbilical area and right upper quadrant Pain does not radiate. Pain currently is 8 out of 10 on a pain scale. at worst was 10 out of 10 on a pain scale. Quality of pain is described as stabbing. EENT: No signs and/or symptoms were reported regarding the EENT system. Neuro: Level of Consciousness is awake, alert, obeys commands, Oriented to person, place, time, situation. Cardiovascular: Patient's skin is warm and dry. Respiratory: Airway is patent Respiratory effort is even, unlabored, Respiratory pattern is symmetrical, hyperventilation. GI: Abdomen is flat, non-distended, Bowel sounds present X 4 quads. Abd is soft and non tender in right lower quadrant and left lower quadrant Abd is rigid in right upper quadrant and left upper quadrant. : No signs and/or symptoms were reported regarding the genitourinary system. Derm: Skin is intact, Skin is pink, warm \T\ dry. Musculoskeletal: Circulation, motion, and sensation intact. Historical: - Allergies: :18 PENICILLINS; jb4 - PMHx: 01:18 Diverticulitis; jb4 - PSHx: 01:18 None; jb4 - Immunization history:: Adult Immunizations up to date, Flu vaccine is up to date. - Social history:: Smoking status: Patient uses tobacco products. - Ebola Screening: : No symptoms or risks identified at this time. Screenin:22 Abuse screen: Denies threats or abuse. Nutritional screening: No deficits noted. jb4 Tuberculosis screening: No symptoms or risk factors identified. Fall Risk None identified. Assessment: :22 General: see triage assessment.. jb4 01:57 Reassessment: Patient appears in no apparent distress at this time. Patient and/or jb4 family updated on plan of care and expected duration. Pain level reassessed. Patient is alert, oriented x 3, equal unlabored respirations, skin warm/dry/pink. 02:47 Reassessment: Patient appears in no apparent distress at this time. Patient and/or jb4 family updated on plan of care and expected duration. Pain level reassessed. Patient is alert, oriented x 3, equal unlabored respirations, skin warm/dry/pink. Verbal order from Dr. Duran 2mg of morphine IVP \T\ 0240. Vital Signs: 01:18 BP 143 / 96; Pulse 98; Resp 26; Temp 98.0(O); Pulse Ox 99% on R/A; Weight 79.38 kg (R); jb4 Height 5 ft. 9 in. (175.26 cm) (R); Pain 8/10; 01:58 BP 157 / 100; Pulse 76; Resp 20; Pulse Ox 98% on R/A; jb4 02:59 BP 136 / 93; Pulse 75; Resp 16; Pulse Ox 97% on R/A; jb4 01:18 Body Mass Index 25.84 (79.38 kg, 175.26 cm) jb4 ED Course: 00:52 Patient arrived in ED. es 00:54 Deng Meade, TIFFANIE is Primary Nurse. jb4 00:57 Po[facility]ima Darby [facility]C [facility] snw 00:57 Matteo Wade MD is Attending Physician. snw 01:08 Rosanne Walker MD is Hospitalizing Provider. snw 01:17 Triage completed. jb4 01:18 Arm band placed on right wrist. jb4 01:22 Patient has correct armband on for positive identification. Call light in reach. Side jb4 rails up X 1. Pulse ox on. NIBP on. 01:22 Initial lab(s) drawn, by me, sent to lab. Inserted saline lock: 20 gauge in left jb4 antecubital area, using aseptic technique. Blood collected. 01:24 Patient moved to WA via wheelchair. kw1 01:36 CT completed. Patient tolerated procedure well. Patient moved back from WA. kw1 03:17 No provider procedures requiring assistance completed. Patient admitted, IV remains in jb4 place. Administered Medications: 01:13 Drug: fentaNYL (PF) 75 mcg Route: IVP; Site: left antecubital; jb4 01:58 Follow up: Response: No adverse reaction; Pain is decreased jb4 01:34 Drug: NS 0.9% 1000 ml Route: IV; Rate: 1 bolus; Site: left antecubital; jb4 02:40 Follow up: Response: No adverse reaction; IV Status: Completed infusion jb4 01:34 Drug: Simethicone 120 mg Route: PO; jb4 01:58 Follow up: Response: No adverse reaction jb4 01:54 Drug: Flagyl 500 mg Volume: 100 ml; Route: IVPB; Rate: 200 ml/hr; Infused Over: 30 lp1 mins; Site: left antecubital; 02:58 Follow up: Response: No adverse reaction; IV Status: Completed infusion jb4 01:55 Drug: fentaNYL (PF) 25 mcg Route: IVP; Site: left antecubital; jb4 01:58 Follow up: Response: No adverse reaction; Pain is decreased jb4 01:57 Drug: TORadol 30 mg Route: IVP; Site: left antecubital; jb4 01:58 Follow up: Response: No adverse reaction; Pain is decreased jb4 02:41 Drug: D5-NS 1000 ml Route: IV; Rate: 125 ml/hr; Site: left antecubital; jb4 03:33 Follow up: Response: No adverse reaction; IV Status: Infusion continued upon admission jb4 02:42 Drug: morphine 2 mg Route: IVP; Site: left antecubital; jb4 02:57 Follow up: Response: No adverse reaction; Pain is decreased jb4 02:58 Drug: Cipro 400 mg Volume: 200 ml; Route: IVPB; Infused Over: 60 mins; Site: left jb4 antecubital; 03:33 Follow up: Response: No adverse reaction; IV Status: Infusion continued upon admission jb4 Outcome: 01:10 Decision to Hospitalize by Provider. snw 03:17 Admitted to Tele accompanied by gerry, via stretcher, room 407, with chart, Report jb4 called to TIFFANIE Erickson 03:17 Condition: stable 03:17 Instructed on the need for admit, Demonstrated understanding of instructions. 03:34 Patient left the ED. jb4 Signatures: Poornima Darby, FOLDING MACHINE TENDER-C FOLDING MACHINE TENDER-Csnw Lyubov Huerta Laura RN RN lp1 Deng Meade RN RN jb4 Bhuim Blake kw1
--- NOTE | 2018-09-19 01:11 | EDPHYS ---
Physician Documentation [facility] Name: Darvin Paris Age: 48 yrs Sex: Male : 1970 Arrival Date: 09/19/2018 Time: 00:52 Bed 16 Private MD: ED Physician Matteo Wade HPI: 09/19 01:04 This 48 yrs old Male presents to ER via Unassigned with complaints of SEVERE snw ABD PAIN. 01:04 Onset: The symptoms/episode began/occurred gradually, 1 week(s) ago, and became worse snw today. Associated signs and symptoms: Pertinent positives: abdominal pain. Modifying factors: The patient symptoms are alleviated by nothing. The patient has experienced a previous episode. The patient has been recently been admitted at [facility], x 5 days for diverticulitis, pt in obvious pain, bowel sound hyperactive. Historical: - Allergies: 01:18 PENICILLINS; jb4 - PMHx: 01:18 Diverticulitis; jb4 - PSHx: 01:18 None; jb4 - Immunization history:: Adult Immunizations up to date, Flu vaccine is up to date. - Social history:: Smoking status: Patient uses tobacco products. - Ebola Screening: : No symptoms or risks identified at this time. ROS: 01:04 Constitutional: Negative for fever, chills, and weight loss, Eyes: Negative for injury, snw pain, redness, and discharge, ENT: Negative for injury, pain, and discharge, Neck: Negative for injury, pain, and swelling, Cardiovascular: Negative for chest pain, palpitations, and edema, Respiratory: Negative for shortness of breath, cough, wheezing, and pleuritic chest pain, Back: Negative for injury and pain, : Negative for injury, bleeding, discharge, and swelling, MS/Extremity: Negative for injury and deformity, Skin: Negative for injury, rash, and discoloration, Neuro: Negative for headache, weakness, numbness, tingling, and seizure. 01:04 Abdomen/GI: Positive for abdominal pain. Exam: 01:04 Constitutional: This is a well developed, well nourished patient who is awake, alert, snw and in acute distress. Head/Face: Normocephalic, atraumatic. Eyes: Pupils equal round and reactive to light, extra-ocular motions intact. Lids and lashes normal. Conjunctiva and sclera are non-icteric and not injected. Cornea within normal limits. Periorbital areas with no swelling, redness, or edema. ENT: Nares patent. No nasal discharge, no septal abnormalities noted. Tympanic membranes are normal and external auditory canals are clear. Oropharynx with no redness, swelling, or masses, exudates, or evidence of obstruction, uvula midline. Mucous membranes moist. Neck: Trachea midline, no thyromegaly or masses palpated, and no cervical lymphadenopathy. Supple, full range of motion without nuchal rigidity, or vertebral point tenderness. No Meningismus. Chest/axilla: Normal chest wall appearance and motion. Nontender with no deformity. No lesions are appreciated. Cardiovascular: Regular rate and rhythm with a normal S1 and S2. No gallops, murmurs, or rubs. Normal PMI, no JVD. No pulse deficits. Respiratory: Lungs have equal breath sounds bilaterally, clear to auscultation and percussion. No rales, rhonchi or wheezes noted. No increased work of breathing, no retractions or nasal flaring. Back: No spinal tenderness. No costovertebral tenderness. Full range of motion. Skin: Warm, dry with normal turgor. Normal color with no rashes, no lesions, and no evidence of cellulitis. MS/ Extremity: Pulses equal, no cyanosis. Neurovascular intact. Full, normal range of motion. Neuro: Awake and alert, GCS 15, oriented to person, place, time, and situation. Cranial nerves II-XII grossly intact. Motor strength 5/5 in all extremities. Sensory grossly intact. Cerebellar exam normal. Normal gait. 01:04 Abdomen/GI: Inspection: abdomen appears normal, Bowel sounds: hyperactive, in all quadrants, Palpation: moderate abdominal tenderness, severe abdominal tenderness, in the suprapubic area. Vital Signs: 01:18 BP 143 / 96; Pulse 98; Resp 26; Temp 98.0(O); Pulse Ox 99% on R/A; Weight 79.38 kg (R); jb4 Height 5 ft. 9 in. (175.26 cm) (R); Pain 8/10; 01:58 BP 157 / 100; Pulse 76; Resp 20; Pulse Ox 98% on R/A; jb4 02:59 BP 136 / 93; Pulse 75; Resp 16; Pulse Ox 97% on R/A; jb4 01:18 Body Mass Index 25.84 (79.38 kg, 175.26 cm) jb4 MDM: 01:01 Patient medically screened. snw 01:10 Data reviewed: vital signs, nurses notes. Data interpreted: Pulse oximetry: on room air snw is 98 %. Interpretation: normal. Counseling: I had a detailed discussion with the patient and/or guardian regarding: the historical points, exam findings, and any diagnostic results supporting the discharge/admit diagnosis, the presence of at least one elevated blood pressure reading (>120/80) during this emergency department visit, lab results, radiology results, the need for further work-up and treatment in the hospital. Physician consultation: Rosanne Walker MD was called at 01:10, was contacted at 01:10, regarding admission, to the medical/surgical unit. 09/19 00:59 Order name: Basic Metabolic Panel; Complete Time: 01:43 snw 09/19 00:59 Order name: CBC with Diff; Complete Time: 01:27 snw 09/19 00:59 Order name: Hepatic Function; Complete Time: 01:43 snw 09/19 00:59 Order name: Lipase; Complete Time: 01:43 snw 09/19 02:48 Order name: Urine Dipstick--Ancillary (enter results) [facility] 09/19 03:23 Order name: Urine Dipstick-Ancillary [facility] 09/19 00:59 Order name: CT Stone Protocol snw 09/19 00:59 Order name: IV Saline Lock; Complete Time: 01:10 snw 09/19 00:59 Order name: Labs collected and sent; Complete Time: 01:10 snw 09/19 00:59 Order name: Urine Dipstick-Ancillary (obtain specimen); Complete Time: 02:47 snw 09/19 01:28 Order name: NPO; Complete Time: 01:29 snw Administered Medications: 01:13 Drug: fentaNYL (PF) 75 mcg Route: IVP; Site: left antecubital; jb4 01:58 Follow up: Response: No adverse reaction; Pain is decreased jb4 01:34 Drug: NS 0.9% 1000 ml Route: IV; Rate: 1 bolus; Site: left antecubital; jb4 02:40 Follow up: Response: No adverse reaction; IV Status: Completed infusion jb4 01:34 Drug: Simethicone 120 mg Route: PO; jb4 01:58 Follow up: Response: No adverse reaction jb4 01:54 Drug: Flagyl 500 mg Volume: 100 ml; Route: IVPB; Rate: 200 ml/hr; Infused Over: 30 lp1 mins; Site: left antecubital; 02:58 Follow up: Response: No adverse reaction; IV Status: Completed infusion jb4 01:55 Drug: fentaNYL (PF) 25 mcg Route: IVP; Site: left antecubital; jb4 01:58 Follow up: Response: No adverse reaction; Pain is decreased jb4 01:57 Drug: TORadol 30 mg Route: IVP; Site: left antecubital; jb4 01:58 Follow up: Response: No adverse reaction; Pain is decreased jb4 02:41 Drug: D5-NS 1000 ml Route: IV; Rate: 125 ml/hr; Site: left antecubital; jb4 03:33 Follow up: Response: No adverse reaction; IV Status: Infusion continued upon admission jb4 02:42 Drug: morphine 2 mg Route: IVP; Site: left antecubital; jb4 02:57 Follow up: Response: No adverse reaction; Pain is decreased jb4 02:58 Drug: Cipro 400 mg Volume: 200 ml; Route: IVPB; Infused Over: 60 mins; Site: left jb4 antecubital; 03:33 Follow up: Response: No adverse reaction; IV Status: Infusion continued upon admission jb4 Disposition: 09/19/18 01:10 Hospitalization ordered by Rosanne Walker for Inpatient Admission. Preliminary diagnosis is Diverticulitis of large intestine with perforation and abscess without bleeding. - Bed requested for Telemetry/MedSurg (Inpatient). - Status is Inpatient Admission. jb4 - Condition is Stable. - Problem is an acute exacerbation. - Symptoms have worsened. UTI on Admission? No Signatures: Dispatcher [employer] EDBhumi Ivy RN RN kl Therrien, Shelly, CLINICAL RESOURCE MANAGER-C CLINICAL RESOURCE MANAGER-Csnw Evie Mims RN RN lp1 Deng Meade RN RN jb4 Corrections: (The following items were deleted from the chart) 03:05 01:10 Hospitalization Ordered by Rosanne Walker MD for Inpatient Admission. Preliminary kl diagnosis is Diverticulitis of large intestine with perforation and abscess without bleeding. Bed requested for Telemetry/MedSurg (Inpatient). Status is Inpatient Admission. Condition is Stable. Problem is an acute exacerbation. Symptoms have worsened. UTI on Admission? No. snw 03:34 03:05 09/19/2018 01:10 Hospitalization Ordered by Rosanne Walker MD for Inpatient jb4 Admission. Preliminary diagnosis is Diverticulitis of large intestine with perforation and abscess without bleeding. Bed requested for Telemetry/MedSurg (Inpatient). Status is Inpatient Admission. Condition is Stable. Problem is an acute exacerbation. Symptoms have worsened. UTI on Admission? No. kl
[2018-09-19] MEDS ORDERED: FENTANYL CITR 100 MCG/2 ML ONE (01:15)
[2018-09-19] MEDS ORDERED: NA CHLORIDE 0.9% 1,000 ML ONE (01:15)
[2018-09-19 01:16] LABS: Absolute Lymphocytes (CBC) 3.6 K/uL (0.7-4.9); Absolute Neutrophil 13.3 K/uL (1.8-8.0); Basophils % 1.1 % (0-1.3); Eosinophils % 1.9 % (0-4.4); Hematocrit 47.7 % (39.6-49.0); Lymphocytes % 18.5 % (15.3-44.8); MCH 31.7 pg (27.0-35.0); MPV 7.2 fL (7.6-11.3); Monocytes % 10.3 % (3.3-12.3); RBC Red Blood Cell Count 5.13 M/uL (4.33-5.43)
[2018-09-19] MEDS ORDERED: SIMETHICONE 80 MG TAB ONE (01:26)
[2018-09-19 01:38] LABS: Albumin 3.2 g/dL (3.4-5.0); Bilirubin Direct 0.2 mg/dL (0-0.2); Bilirubin Total 0.5 mg/dL (0.2-1.0); Potassium 3.9 mmol/L (3.5-5.1); Protein, Total 7.3 g/dL (6.4-8.2)
[2018-09-19] MEDS ORDERED: CIPROFLOXACIN 400mg IV 400 MG/200 ML BAG IV ONE (01:53)
[2018-09-19] MEDS ORDERED: KETOROLAC 30 MG/ML INJ ONE ×2 (01:53→13:39)
[2018-09-19] MEDS ORDERED: D5 0.9 NS 1,000 ML IV ONE (01:53)
[2018-09-19] MEDS ORDERED: METRONIDAZOLE 500mg IVPB 500 MG/100 ML BAG IV ONE (01:54)
[2018-09-19] MEDS ORDERED: MORPHINE 4 MG/ML SYR ONE (02:40)
[2018-09-19 03:23] LABS: Urine Blood NEGATIVE (NEG); Urine Glucose NEGATIVE (NEG); Urine Protein NEGATIVE (NEG); Urine Specific Gravity 1.015 (1.005-1.030)
--- NOTE | 2018-09-19 03:25 | P.HP ---
Certification for Inpatient Patient admitted to: Inpatient With expected LOS: >2 Midnights Practitioner: I am a practitioner with admitting privileges, knowledge of patient current condition, hospital course, and medical plan of care. Services: Services provided to patient in accordance with Admission requirements found in Title 42 Section 412.3 of the Code of Federal Regulations Patient History Date of Service: 09/19/18 Reason for admission: Sigmoid abscess History of Present Illness: Mr Paris is a 48-year-old male with history of tobacco use who recently was admitted to the hospital due to acute diverticulitis, with micro perforation, he was evaluated by a surgeon, and was recommended only medical treatment with IV antibiotics. Once the patient improved, he was discharged home did with oral antibiotics. 2 days later he came back to ER complaining of right arm swelling inside when he had the IV. He was diagnosed with thrombophlebitis and discharged home from ER. Now the patient is complaining of severe abdominal pain, starting 2 days ago on gravelly getting worse. He denies fever but has had chills, nausea. The pain is diffuse and constant, 10/10 of intensity. Lab work remarkable for leukocytosis 19.4 K, CT abdomen and pelvis report sigmoid abscess 4 X 8 cm. Patient is afebrile in ER. Allergies No Known Allergies Allergy (Verified 09/11/18 13:22) Home medications list reviewed: Yes Home Medications: Ciprofloxacin HCl [Cipro 500 MG Tablet] 500 mg PO BID #12 tab 09/15/18 metroNIDAZOLE [Flagyl] 500 mg PO Q6H 6 Days #24 tablet 09/15/18 - Past Medical/Surgical History -: Diverticulitis Past Surgical History: Reviewed- Non-Contributory - Family History Family History: Reviewed- Non-Contributory - Social History Smoking Status: Current every day smoker Counseled patient to stop smoking for: less than 10 minutes Smoking therapy provided: Yes Patient receptive to therapy: No Alcohol use: No CD- Drugs: No Place of Residence: Home Review of Systems 10-point ROS is otherwise unremarkable Physical Examination - Physical Exam General: Alert, Moderate distress (Due to abdominal pain) HEENT: Atraumatic, PERRLA, Mucous membr. moist/pink, EOMI, Sclerae nonicteric Neck: Supple, 2+ carotid pulse no bruit, No LAD, Without JVD or thyroid abnormality Respiratory: Clear to auscultation bilaterally, Normal air movement Cardiovascular: Regular rate/rhythm, Normal S1 S2 Gastrointestinal: Normal bowel sounds, Tenderness (Diffuse abdominal pain) Musculoskeletal: No tenderness Integumentary: No rashes Neurological: Normal speech, Normal strength at 5/5 x4 extr, Normal tone, Normal affect Lymphatics: No axilla or inguinal lymphadenopathy - Studies Laboratory Data (last 24 hrs) 09/19/18 01:05 PASTRY WRAPPER: WBC 19.4 H D, Hgb 16.3, Hct 47.7 D, Plt Count 368 D 09/19/18 01:05 PASTRY WRAPPER: Sodium 136, Potassium 3.9, BUN 9, Creatinine 1.00, Glucose 168 H, Total Bilirubin 0.5, AST 18, ALT 33, Alkaline Phosphatase 65, Lipase 95 Assessment and Plan - Problems (Diagnosis) (1) Abscess of sigmoid colon due to diverticulitis Current Visit: Yes Status: Acute (2) Diverticulitis Onset Date: 09/13/18 Current Visit: No Status: Acute - Plan The patient will be admitted to the hospital due to a sigmoid abscess diverticulitis. Will start IV Zosyn, keeping NPO, consult Dr. Brown, and order symptomatic medication for pain. - Advance Directives Does patient have a Living Will: No Does patient have a Durable POA for Healthcare: No - Code Status/Comfort Care Code Status Assessed: Yes Code Status: Full Code
[2018-09-19] MEDS ORDERED: ACETAMINOPHEN 500 MG TAB PO PRN (03:34)
[2018-09-19] MEDS ORDERED: MORPHINE 2 MG/ML SYR IV PRN (03:34)
[2018-09-19] MEDS ORDERED: ONDANSETRON 4 MG/2 ML VIAL IV PRN (03:34)
[2018-09-19] MEDS: NA CHLORIDE 0.9% 1,000 ML IV SCH ×3 (04:17→18:08)
[2018-09-19] MEDS: PIPER/TAZO/NS 3.375gm 3.375 GM/100 ML BAG IVPB SCH ×3 (04:20→18:07)
[2018-09-19] MEDS ORDERED: PIPER/TAZO/NS 3.375gm 3.375 GM/100 ML BAG ONE (04:27)
[2018-09-19] MEDS: KETOROLAC 30 MG/ML INJ IV PRN (04:32)
--- NOTE | 2018-09-19 08:34 | RAD REPORT ---
EXAM DESCRIPTION: CT - Stone Protocol - 09/19/2018 6:07 am CLINICAL HISTORY: Worsening abdominal pain, history of recent diverticulitis diagnosis COMPARISON: CT imaging September 11 TECHNIQUE: Axial [address] imaging of the abdomen and pelvis was performed without IV contrast. No IV contrast was given because of allergy, abnormal renal function, patient refusal or physician re quest. No oral contrast administered. All CT scans are performed using dose optimization technique as appropriate and may include automated exposure control or mA/KV adjustment according to patient size. FINDINGS: No suspicious findings in the lung bases. Medial right base calcified granulomas are prese nt. The liver, spleen and pancreas show no suspicious findings on non-contrast imaging. Gallbladder and b iliary tree are also without suspicious finding. No hydronephrosis or suspicious renal mass. Patient has nonobstructing calyx calculi on the left. Jack dder is contracted. No bladder calculus. No significant adrenal finding. Isodense renal masses and py elonephritis cannot be excluded in the absence of IV contrast. No gastric dilatation or wall thickening. Small bowel loops are not dilated. The appendix is normal. Cecum through descending colon show no significant findings. In the central pelvis there is a 7.5 x 4.5 centimeter fluid and air collection. This abuts the sigmoi d colon on the deep posterior margin. There is stranding and edema in the adjacent fatty tissues. No distant free air. No distant abnormal fluid collection. The large central pelvis abscess is currently surrounded by small bowel loops and not amenable to a p ercutaneous drainage procedure. Diverticular abscess is the most common etiology. However, the patien t has very little diverticulosis. Abscess related to a colitis is possible. Although the patient is r elatively young, the possibility of a perforated colon malignancy is a differential consideration. No suspicious bony findings. IMPRESSION: Approximately 7.5 x 4.5 centimeter abscess in the central pelvis associated with the mid sigmoid colon. Currently the abscess is surrounded by small bowel loops and not amenable to a percutaneous drainage procedure. Diverticular abscess is the most common etiology. However, patient has very little diverticulosis. An abscess from infectious colitis or from a perforated malignancy are additional differential consider ations. No distant free air for distant abscess. Full assessment is limited is the absence of IV contrast.
[2018-09-19] MEDS ORDERED: KCL 20 MEQ/100 mL IVPB 20 MEQ/100 ML BAG IV SCH (09:00)
[2018-09-19] MEDS ORDERED: FENTANYL CITR 100 MCG/2 ML IV ONE ×2 (09:00→09:58)
[2018-09-19] MEDS ORDERED: FENTANYL CITR 100 MCG/2 ML IV PRN (11:18)
[2018-09-19] MEDS ORDERED: Ringers Lactate 1,000 ML IV ONE ×2 (12:46→15:10)
--- NOTE | 2018-09-19 12:57 | P.CNS ---
Date of Consult: 09/19/18 PC: This 40-year-old male presents emergency room with severe abdominal pain for diagnosis and treatment. HPC: Patient recently been in the hospital. He had perforated diverticular disease with a small abscess. He was treated with IV antibiotics, and bowel rest. He had responded well and was discharged on oral antibiotics. Yesterday began to have increasing pain and discomfort. Also nausea and vomitings fevers and chills. Came back to emergency room for evaluation. On CT scan was found have a larger abscess with peritoneal signs. PMH: Negative PSHx: Previous Achilles tendon surgery SOC: No known allergies SYS REVIEW: No cough, wheeze, shortness of breath. No chest pain or palpitations. Denies any urinary complaints. Had to come back to the ER for evaluation of his right arm or use found have a thrombophlebitis from the IV. O/E awake alert vital signs are stable in moderate discomfort at the moment HEENT: Not jaundice Chest: Air entry equal bilaterally ABD: Tender particularly lower portion of the abdomen with localizing sign LOCO: Intact DATA: 19,000 white count, CT scan shows significant enlargement of abscess IMPRESSION: Abscess from diverticular disease PLAN: I will take him to the operating room for exploratory laparotomy, drainage of intra-abdominal abscess, sigmoid resection with end colostomy. The risks of this procedure have been discussed. The possibility of bleeding, infection, injury to bowel blood vessels ureters and nerves were explained. He understands and wants to proceed. The fact that he will have to have the colostomy if possible put back together again was also outlined. Consent form has been signed.
[2018-09-19] MEDS ORDERED: HYDROMORPHONE HCL 2 MG/ML inj IV ONE (13:00)
[2018-09-19] MEDS ORDERED: FENTANYL CITR 250 MCG/5 ML ONE (13:18)
[2018-09-19] MEDS ORDERED: MIDAZOLAM HCL 2 MG/2 ML INJ ONE (13:18)
[2018-09-19] MEDS ORDERED: ROCURONIUM 50 MG/5 ML VIAL IV ONE ×2 (13:19→14:09)
[2018-09-19] MEDS ORDERED: Phenylephrine HCl 10 MG/ML 1 ML VIAL ONE (13:19)
[2018-09-19] MEDS ORDERED: PROPOFOL 200 MG/20 ML VIAL IV ONE (13:19)
[2018-09-19] MEDS ORDERED: ONDANSETRON HCL 40 MG/20 ML VIAL ONE (13:39)
[2018-09-19] MEDS ORDERED: DEXAMETHASONE 10 MG/ML VIAL ONE (13:39)
[2018-09-19] MEDS ORDERED: NEOSTIGMINE 1 MG/ML -5 ML SYRINGE ONE (14:39)
[2018-09-19] MEDS ORDERED: GLYCOPYRROLATE 0.2 MG/ML SYR ONE (14:39)
[2018-09-19] MEDS ORDERED: MORPHINE 10 MG/ML VIAL ONE (14:53)
--- NOTE | 2018-09-19 16:15 | P.OP ---
Preoperative diagnosis: Intra-abdominal abscess, complications of perforated diverticulitis Postoperative diagnosis: The same Primary procedure: Exploratory laparotomy, sigmoid resection Secondary procedure: Drainage of intra-abdominal abscess, lyses of adhesions and appendectomy Other procedure(s): And colostomy Anesthesia: General Estimated blood loss: Less than 20 cc Specimen: Sigmoid colon and appendix Operative Technique: The patient brought the operating room and placed supine on the table. After the induction of adequate general endotracheal anesthesia, the abdomen was prepped with a DuraPrep solution, use draped in usual aseptic manner. A generous midline incision was made. This brought down through the skin and subcutaneous tissue. The fascia was opened above the umbilicus. The peritoneum was grasped between 2 hemostats, sharply incised Sara access to the peritoneal cavity. With a finger in the peritoneal cavity we will cut down and open our incision all the way down to just above the pubic symphysis. The Bookwalter retractor was now put in position. We could see that there was an inflammatory process just at the brim of the true pelvis. On gentle dissection we were able to feel the actual area of the abscess. A finger was used to gently dissect into the abscess cavity. It was then drained using the Yankauer suction controlling any spillage to keep a to a minimum. At this point the small bowel was then mobilize. It had formed a area around this collection. These adhesions were taken down using blunt sharp dissection. The old rind was then excised using a Metzenbaum scissors. At this point the area of the sigmoid was identified. Just proximal to that a linear Stapler was fired to divide the sigmoid colon. The mesentery of the sigmoid was now taken down using the ligature. Having distal GE inflammatory process, a contour Stapler was now placed across this sigmoid colon and fired. The resected specimen was sent for histopathology. The area of the abscess and inflammatory process was now irrigated with a copious amount of saline solution. The small bowel was run from the ligament of Treitz down to the ileocecal valve. There were 2 leads that had been involved in isolating this abscess. The the necrotic debris was dissected off of the leafs of the knees injury. At this point the appendix was noted be all Cherry Curet almost into this abscess cavity. AE appendectomy was performed using a linear Stapler and the mesentery was taken down using the ligature. The specimen was sent for histopathology. At this point the pelvis was once again irrigated until the effluent was clear. The 5 mm drain was passed down into the true pelvis and brought out the right lower quadrant. The previously skin marked area on the skin was now excised in a circular manner. The subcutaneous tissue was removed with electro cautery. The fascia was opened using a cruciate incision. The underlying muscles were divided in the posterior sheath was passed and again opened in a cruciate manner. The distal left colon was brought up to former and colostomy. At this point the intestines were returned to their normal anatomical position. Sutures were placed to buttress the facile defect that we created for colostomy. The intestine was tacked to the anterior abdominal wall. The omentum was now placed down over the intestines. The midline was closed a running suture of PDS. Camilo were applied to the skin. Attention was turned back over towards her and colostomy. Having cleared the serosa of the linear Stapler was now placed around the distal end of the bowel. A pursestring suture had been placed around the skin edges ever colostomy site. The pursestring device was fired. A 33 anvil was placed into the distal portion of the bowel. The pursestring suture was pulled up. The anvil inside the bowel was now carried into the subcutaneous tissue. The suture around the skin edges were the tied to allow us to performed and the skin anastomosis and complete our colostomy. An appliance was then placed over the prone colostomy. At the end of the procedure the patient was in a stable condition when sent to the recovery room. Needle sponge instrument count were correct. 1 Eliezer-Nova drain had been placed. A nasogastric tube and a Benson catheter were left in position as well. Complications: None Drain(s): Nasogastric, Urinary catheter, DENNIS drain Transferred to: Recovery Room Condition: Good
[2018-09-19] MEDS ORDERED: PIPER/TAZO/NS 3.375gm 3.375 GM/100 ML BAG IVPB SCH (17:00)
[2018-09-19] MEDS ORDERED: MEPERIDINE HCL 25 MG/0.5 ML IVP PRN (17:39)
[2018-09-19] MEDS: MEPERIDINE HCL 50 MG/ML AMP IV PRN ×2 (18:11→21:04)
--- NOTE | 2018-09-19 20:35 | PN ---
Date of Progress Note: 09/19/2018 Subjective: Patient seen and examined. Chart reviewed and case discussed with RN and Dr. Brown as well as Dr. Burch. Patient was here previously in the hospital several days ago and was seen by Lorelei Burch. Therefore, Dr. Brown has recommended Dr. Burch to be consulted for continuity of car e. Patient is having extreme pain in his abdomen, not relieved by IV pain medications for more than 10-15 minute intervals. Patient will likely need to go to the OR for exploratory laparotomy and poss ible colon resection. Review of Systems: Negative except as above. Medications: List reviewed. Physical Examination: Vital Signs: Temperature 99.5, heart rate 81, blood pressure 153/85, respirations 18, O2 96% on room air. General: Awake, alert, oriented x3, in some moderate distress due to pain, ill-appearing male. CV: S1, S2. No murmurs. Peripheral pulses present. Respiratory: Moving air well bilaterally. No wheezing or stridor. Gastrointestinal: Abdomen is tender to palpation, rigid, does have some voluntary guarding. Bowel s ounds hypoactive. Mildly distended. Extremities: No clubbing, cyanosis, edema. Neurologic: Nonfocal. Laboratory Data: Sodium 136, potassium 3.9, chloride 103, CO2 of 27, BUN 9, creatinine 1, glucose 16 8, calcium 8.8. WBC 19.4, H and H 16.3, 47.7; platelets 360, neutrophils 68%. UA is negative. Cult ures pending. CT scan of the abdomen and pelvis personally reviewed, shows approximately 7 x 4.5 cm abscess in the central pelvis associated with the mid sigmoid colon. Currently, the abscess is surro unded by small bowel loops and not amenable to percutaneous drainage procedure. Diverticular abscess is most common etiology. Abscess from infectious colitis or from perforated malignancy are addition al differential considerations. No distant free air or distant abscess. Assessment And Plan: A 48-year-old male with: 1.Generalized abdominal pain, likely due to sigmoid diverticulitis, abscess versus perforation. 2.Likely sigmoid colon perforation and abscess. Patient will need to go to the OR. Dr. Burch has been contacted. 3.Acute diverticulitis, failed outpatient treatment. 4.Intractable pain. 5.Hyperglycemia, likely reactive. 6.Gastrointestinal and deep venous thrombosis prophylaxis addressed. Plan: Transfer patient to ICU. Dr. Burch has been contacted. Recommend surgical intervention at this time. Patient has been in serious condition. We will continue with IV antibiotics. Monitor bl ood pressure q. half hour. Adjust pain medications. Guarded prognosis. Length of stay greater than 48 hours. /ALBAN Voice ID: [id number] Report ID: [id number]
[2018-09-20] MEDS: PIPER/TAZO/NS 3.375gm 3.375 GM/100 ML BAG IVPB SCH ×3 (00:39→17:31)
[2018-09-20] MEDS: NA CHLORIDE 0.9% 1,000 ML IV SCH ×3 (02:55→22:20)
[2018-09-20] MEDS: MEPERIDINE HCL 50 MG/ML AMP IV PRN ×6 (03:09→20:03)
[2018-09-20 05:14] LABS: Absolute Lymphocytes (CBC) 1.2 K/uL (0.7-4.9); Absolute Neutrophil 10.4 K/uL (1.8-8.0); Basophils % 0.4 % (0-1.3); Hematocrit 40.2 % (39.6-49.0); Lymphocytes % 9.5 % (15.3-44.8); MCH 31.8 pg (27.0-35.0); MCV 93.9 fL (80-100); MPV 7.2 fL (7.6-11.3); Monocytes % 7.6 % (3.3-12.3); RBC Red Blood Cell Count 4.28 M/uL (4.33-5.43)
[2018-09-20 05:20] LABS: BUN Blood Urea Nitrogen 9 mg/dL (7-18); Bicarbonate 29 mmol/L (21-32); Glucose Level 139 mg/dL (74-106); Potassium 4.4 mmol/L (3.5-5.1); Sodium Level 138 mmol/L (136-145)
--- NOTE | 2018-09-20 13:38 | P.PN ---
Subjective Date of Service: 09/20/18 Chief Complaint: Sigmoid abscess Patient seen and examined. No family at the Chart reviewed and case discussed with RN. Patient is postop day 1. Status post exploratory laparotomy, sigmoid resection, drainage of intra-abdominal abscess, appendectomy in colostomy. Patient has NG tube in, training. Denies any abdominal pain, nausea or vomiting. Reports passing gas via colostomy bag. Review of Systems As noted above Physical Examination - Vital Signs Temperature: 97.6 F Blood Pressure: 119/80 Pulse: 67 Respirations: 13 Pulse Ox (%): 91 - Physical Exam General: Alert, In no apparent distress HEENT: Atraumatic, PERRLA, EOMI Neck: Supple, JVD not distended Respiratory: Clear to auscultation bilaterally, Normal air movement Cardiovascular: Regular rate/rhythm, Normal S1 S2 Gastrointestinal: Hypoactive, Other (With colostomy bag in place, colostomy with normal color, minimal output. NG tube in place, still having a lot of output, 700 L past shift.) Musculoskeletal: No tenderness Integumentary: No rashes Neurological: Normal speech, Normal tone, Normal affect Lymphatics: No axilla or inguinal lymphadenopathy - Studies Medications List Reviewed: Yes Assessment And Plan - Plan This is a 48-year-old male with: -Abdominal pain, secondary to abscess likely from perforated diverticulitis: Dr. Nogueira, surgery consulted. Recommendations appreciated. He is postop day 1. Status post ex lap with sigmoid resection and colostomy placement along with drainage of intra-abdominal abscess, lysis of adhesions and appendectomy. NG tube in place, draining well. Continue N.p.o., NG tube in place. Pain management, continue IV fluids and IV antibiotics. - Acute diverticulitis, with perforation - Hyperglycemia: Likely reactive. Continue monitoring DVT prophylaxis: On hold due to recent surgery. Diet: NPO Disposition: Continue care in ICU. Continue IV antibiotics and pain management. Symptomatic management Physician Review: Patient Assessed, Agree with Above Assessment and Plan Critical Care: Yes Time Spent Managing PTS Care (In Minutes): 35
[2018-09-20] MEDS ORDERED: MINERAL OIL 30 ML UCUP FT ONE (14:10)
[2018-09-20] MEDS: NICOTINE 21 MG/PAT TD SCH (15:43)
[2018-09-21] MEDS: PIPER/TAZO/NS 3.375gm 3.375 GM/100 ML BAG IVPB SCH ×3 (00:34→17:30)
[2018-09-21] MEDS: MEPERIDINE HCL 50 MG/ML AMP IV PRN ×5 (00:40→20:19)
[2018-09-21] MEDS: KETOROLAC 30 MG/ML INJ IV PRN (03:52)
[2018-09-21] MEDS: NICOTINE 21 MG/PAT TD SCH (09:29)
[2018-09-21] MEDS: NA CHLORIDE 0.9% 1,000 ML IV SCH (09:30)
[2018-09-21] MEDS: HYDROCODONE/APAP 10/325 TAB PO PRN ×3 (09:31→20:20)
[2018-09-21] MEDS: HEPARIN/D5W 25,000 UNIT/500 ML BAG IV SCH (11:46)
[2018-09-21 12:10] LABS: Protime INR 1.18
--- NOTE | 2018-09-21 12:29 | RAD REPORT ---
EXAM DESCRIPTION: CT - Chest For Pe Angio - 09/21/2018 12:03 pm CLINICAL HISTORY: Chest pain, shortness of breath COMPARISON: None. TECHNIQUE: Dynamically enhanced 3 mm thick images of the chest were obtained during administration o f approximately 150mL Isovue 370 IV contrast. Coronal and oblique MIP reconstruction images were gene rated and reviewed. Exam utilizes a protocol to evaluate the pulmonary arterial tree. All CT scans are performed using dose optimization technique as appropriate and may include automated exposure control or mA/KV adjustment according to patient size. FINDINGS: Segmental branch pulmonary embolism is present mid left upper lobe (image 43/101). Right m iddle lobe pulmonary embolism present as well (image 59/101). Suspected filling defect in the right l ower lobar branch (image [id number]/[id number]) suspected as well. No saddle embolus. The aorta as imaged shows no acute or suspicious finding. No pericardial thickening or effusion. Bilateral lower lobe atelectasis present. Minimal lung base infiltrates are certainly possible as wel l. A few small air bronchograms are present. There is infectious or inflammatory debris or mucous in the left lower lobe bronchus. No pleural effusion or pleural thickening. Patient has numerous calcifi ed granulomas. No mediastinal or hilar suspicious masses. No chest wall masses or abnormal axillary lymphadenopathy. IMPRESSION: Right middle lobe, right lower lobe and left upper lobe pulmonary emboli present as deta iled. Lung base atelectasis with suspected concurrent infiltrate, particularly left lower lobe. No malignant mass or lymphadenopathy. Patient has benign granulomas.
--- NOTE | 2018-09-21 14:39 | P.PN ---
Date of Service: 09/21/18 S: For patient has some mild incisional pain, controlled with Demerol. Earlier today had been up walking with physical therapy. When he got back to bed nurse under CV shorter breath. His O2 sats dropped to the 70s. Emergency CT demonstrated segmental emboli. This is vital signs remained stable throughout. O: His incisions clean, his colostomy started work. Serosanguineous drainage from DENNIS drain. Vital signs otherwise stable. O2 sats stable on rebreather mask. A: Had PEs this morning, despite SCDs and early ambulation. Has been started on heparin. Surgically stable however. PE: Continue medical management. Will slowly advance diet as tolerated. Explained the situation to the patient. Also readjusted his pain medicine. Will check CBC Chem 20 in a.m..
--- NOTE | 2018-09-21 14:55 | P.PN ---
Subjective Date of Service: 09/21/18 Chief Complaint: Sigmoid abscess Patient seen and examined. No family at the Chart reviewed and case discussed with RN. Patient is postop day 2 Status post exploratory laparotomy, sigmoid resection, drainage of intra-abdominal abscess, appendectomy in colostomy. NG tube discontinued. Denies any abdominal pain, nausea or vomiting. Colostomy is working. During my exam in the morning, patient was doing okay. Later on during the day clinical that patient after working with physical therapy, oxygen saturation down to 70% and patient was having a lot of trouble breathing. Upon re- examination, patient in bed with moderate respiratory distress, de satting with any movement. Denies any chest pain, headache, vision changes, dizziness. Review of Systems As noted above Physical Examination - Vital Signs Temperature: 98 F Blood Pressure: 129/83 Pulse: 94 Respirations: 21 Pulse Ox (%): 92 - Physical Exam General: Alert, Moderate distress (respiratory distress) HEENT: Atraumatic, PERRLA, EOMI Neck: Supple, JVD not distended Respiratory: Clear to auscultation bilaterally, Normal air movement Cardiovascular: Regular rate/rhythm, Normal S1 S2 Gastrointestinal: Normal bowel sounds, Other (Colostomy noted to be working; Incision site is clean/dry/intact), Tenderness Musculoskeletal: No tenderness Integumentary: No rashes Neurological: Normal speech, Normal tone, Normal affect Lymphatics: No axilla or inguinal lymphadenopathy - Studies Medications List Reviewed: Yes Assessment And Plan - Plan This is a 48-year-old male with: - Pulmonary embolism: Acute pulmonary embolism here in the patient was started on early ambulation, SCDs in place. Patient oxygen desats to 70 with exertion/any movement. Patient was started on heparin drip, then stat CTA was ordered. Emergency CTA with Right middle lobe, right lower lobe and left upper lobe pulmonary emboli. Continue anticoagulation Echo ordered, pending Pulmonology consult -Abdominal pain, secondary to abscess likely from perforated diverticulitis: Dr. Nogueira, surgery consulted. Recommendations appreciated. He is postop day 2. Status post ex lap with sigmoid resection and colostomy placement along with drainage of intra-abdominal abscess, lysis of adhesions and appendectomy. NG tube discontinued. Continue N.p.o., NG tube in place. Pain management, continue IV fluids and IV antibiotics. - Acute diverticulitis, with perforation - Hyperglycemia: Likely reactive. Continue monitoring DVT prophylaxis: See above, pulmonary embolism management. Diet: NPO Disposition: Continue care in ICU. Continue heparin, IV antibiotics and pain management. Symptomatic management Physician Review: Patient Assessed, Agree with Above Assessment and Plan Critical Care: Yes Time Spent Managing PTS Care (In Minutes): 45
[2018-09-21] MEDS ORDERED: MEPERIDINE HCL 50 MG/ML AMP ONE (16:58)
[2018-09-22] MEDS: MEPERIDINE HCL 50 MG/ML AMP IV PRN ×9 (00:31→23:38)
[2018-09-22] MEDS: NA CHLORIDE 0.9% 1,000 ML IV SCH ×3 (00:31→21:34)
[2018-09-22] MEDS: PIPER/TAZO/NS 3.375gm 3.375 GM/100 ML BAG IVPB SCH ×3 (00:32→16:30)
[2018-09-22] MEDS: HEPARIN/D5W 25,000 UNIT/500 ML BAG IV SCH (04:07)
[2018-09-22 04:30] LABS: Absolute Lymphocytes (CBC) 2.6 K/uL (0.7-4.9); Absolute Monocytes 0.6 K/uL (0.1-1.3); Absolute Neutrophil 6.3 K/uL (1.8-8.0); Basophils % 1.3 % (0-1.3); Eosinophils % 2.5 % (0-4.4); Hematocrit 34.1 % (39.6-49.0); Lymphocytes % 26.3 % (15.3-44.8); MCH 31.7 pg (27.0-35.0); MCV 93.3 fL (80-100); RBC Red Blood Cell Count 3.65 M/uL (4.33-5.43)
[2018-09-22 04:38] LABS: BUN Blood Urea Nitrogen 7 mg/dL (7-18); Bicarbonate 27 mmol/L (21-32); Glucose Level 72 mg/dL (74-106); Magnesium 2.2 mg/dL (1.8-2.4); Potassium 3.5 mmol/L (3.5-5.1); Sodium Level 138 mmol/L (136-145)
[2018-09-22] MEDS ORDERED: POTASSIUM CL SA 10 MEQ TAB PO ONE (05:28)
--- NOTE | 2018-09-22 08:02 | ECHO ---
HEIGHT: 5 ft 9 in WEIGHT: 190 lb 2 oz DATE OF STUDY: 09/21/[address]: Fortino Benites MD 2-DIMENSIONAL: YES M.MODE: YES DOPPLER: YES COLOR FLOW: YES TDS: YES PORTABLE: YES DEFINITY: NO BUBBLE STUDY: NO DIAGNOSIS: PULMONARY EMBOLISM CARDIAC HISTORY: CATHERIZATION: NO SURGERY: NO PROSTHETIC VALVE: NO PACEMAKER: NO MEASUREMENTS (cm) DIASTOLIC (NORMALS) SYSTOLIC (NORMALS) IVSd 0.9 (0.6-1.2) LA Diam 2.9 (1.9-4.0) LVEF 60% LVIDd 4.6 (3.5-5.7) LVIDs 3.1 (2.0-3.5) %FS 32% LVPWd 1.0 (0.6-1.2) Ao Diam 3.5 (2.0-3.7) 2 DIMENSIONAL ASSESSMENT: RIGHT ATRIUM: NORMAL LEFT ATRIUM: NORMAL RIGHT VENTRICLE: NORMAL LEFT VENTRICLE: NORMAL TRICUSPID VALVE: NORMAL MITRAL VALVE: NORMAL PULMONIC VALVE: NORMAL AORTIC VALVE: SCLEROSIS PERICARDIAL EFFUSION: NONE AORTIC ROOT: NORMAL LEFT VENTRICULAR WALL MOTION: NORMAL DOPPLER/COLOR FLOW: NORMAL COMMENTS: AORTIC SCLEROSIS. NORMAL LEFT AND RIGHT VENTRICULAR SIZE AND FUNCTION. NO PULMONARY HYPERTENSION. TECHNOLOGIST: Guero ESPINOZA
--- NOTE | 2018-09-22 08:37 | P.CNS ---
Date of Consult: 09/22/18 Reason for Consult: Pulmonary emboli Chief Complaint: Pulmonary emboli History of Present Illness: Patient is 48 years of age he is status post laparotomy with drainage of abscess and a colostomy developed acute onset of hypoxemia shortness of breath was found to have bilateral pulmonary embolism patient is a heavy smoker no other car cardiopulmonary disorders does not see any physicians not take any medications planing of abdominal pain Allergies No Known Allergies Allergy (Verified 09/11/18 13:22) Home Medications: NK [No Home Meds] 09/19/18 - Past Medical/Surgical History Diabetic: No -: Diverticulitis - Social History Smoking Status: Current every day smoker Alcohol use: No CD- Drugs: No Caffeine use: Yes Place of Residence: Home Review of Systems General: Weakness Respiratory: Cough, Shortness of Breath Gastrointestinal: Abdominal Pain Physical Examination Temp Pulse Resp BP Pulse Ox 97.3 F 68 14 156/90 H 97 09/22/18 04:00 09/22/18 06:00 09/22/18 06:00 09/22/18 06:00 09/22/18 06:00 General: Alert, Oriented x3 HEENT: Atraumatic Neck: Supple Respiratory: Clear to auscultation bilaterally, Diminished Cardiovascular: Edema (Animal edema) Gastrointestinal: Other (Diminished bowel sounds) - Problems (1) Pulmonary embolism Current Visit: Yes Status: Acute Plan: Patient is 48 years of age admitted with acute pulmonary embolism following surgery he is hemodynamically stable labs reviews chemistries unremarkable plan to change to [place] lower extremity Dopplers in transfer to the floor he had 3 months of anticoagulation as he has a clear precipitating factor for pulmonary embolism patient is also heavy active smoker echocardiogram is normal and transfer to the floor Qualifiers: Chronicity: acute
--- NOTE | 2018-09-22 10:07 | RAD REPORT ---
EXAM DESCRIPTION: US - Extrem Venous W Compress Bernabe - 09/22/2018 9:54 am CLINICAL HISTORY: Leg pain and swelling COMPARISON: None. TECHNIQUE: Real-time sonographic evaluation of the bilateral lower extremity common femoral, superfi cial femoral, popliteal and posterior tibial veins was performed. FINDINGS: Normal compressibility, flow augmentation, phasic flow and spontaneous flow are identified in the left and right lower extremity common femoral, superficial femoral, popliteal and posterior t ibial veins. No intraluminal filling defects seen. IMPRESSION: No DVT in either lower extremity.
[2018-09-22] MEDS: ARFORMOTEROL TARTRATE 15 MCG/2 ML VIAL.NEB NEB SCH ×2 (10:15→20:35)
[2018-09-22] MEDS: HYDROCODONE/APAP 10/325 TAB PO PRN ×2 (10:16→19:41)
[2018-09-22] MEDS: NICOTINE 21 MG/PAT TD SCH (10:16)
[2018-09-22] MEDS: ENOXAPARIN 100 MG/ML SYR SQ SCH ×2 (10:16→21:23)
--- NOTE | 2018-09-22 15:10 | P.PN ---
S: Patient feels well today, no specific complaints. Good effort on incentive spirometry. No real appetite, is satisfied with Chest full liquids. O: Vital signs remain stable, abdomen is soft, incision is clean. Colostomy is working well changed by him i an the nurse today) A: Surgically stable. Awaiting pulmonary issues to stabilize. P: Continue current therapy. Will be transferred to the floor when medicine agrees.
--- NOTE | 2018-09-22 15:22 | P.PN ---
Subjective Date of Service: 09/22/18 Chief Complaint: Pulmonary emboli Patient seen and examined. No family at the Chart reviewed and case discussed with RN. Patient is postop day 3 Status post exploratory laparotomy, sigmoid resection, drainage of intra-abdominal abscess, appendectomy in colostomy. NG tube discontinued. Denies any abdominal pain, nausea or vomiting. Colostomy is working. Sports no trouble breathing, though still desats. Doing well on Ventimask at 50 %. Denies any chest pain, headache, vision changes, dizziness. Review of Systems As noted Physical Examination - Vital Signs Temperature: 97.3 F Blood Pressure: 134/84 Pulse: 89 Respirations: 19 Pulse Ox (%): 95 - Physical Exam General: Alert, In no apparent distress HEENT: Atraumatic, PERRLA, EOMI Neck: Supple, JVD not distended Respiratory: Other (Venti-Mask, 50%) Cardiovascular: No edema, Normal pulses, Regular rate/rhythm, Normal S1 S2 Gastrointestinal: Normal bowel sounds, Other (Incision site clean/dry/intact; colostomy working) Musculoskeletal: No tenderness Integumentary: No rashes Lymphatics: No axilla or inguinal lymphadenopathy - Studies Medications List Reviewed: Yes Assessment And Plan - Plan This is a 48-year-old male with: - Pulmonary embolism: Did have risk factors, surgery. Acute pulmonary embolism even though the patient was started on early ambulation , SCDs in place. Patient oxygen desats to 70 with exertion/any movement. Patient was started on heparin drip, then stat CTA was ordered. Emergency CTA with Right middle lobe, right lower lobe and left upper lobe pulmonary emboli. Heparin discontinued, started on Lovenox 90 b.i.d.. He will need to be on anticoagulation for the next 3 months. Echo ordered, normal Pulmonology consult, recommendations appreciated. -Abdominal pain, secondary to abscess likely from perforated diverticulitis: Dr. Nogueira, surgery consulted. Recommendations appreciated. He is postop day 4. Status post ex lap with sigmoid resection and colostomy placement along with drainage of intra-abdominal abscess, lysis of adhesions and appendectomy. NG tube discontinued. Colostomy in working condition. Trial of clear liquid diet. Pain management, continue IV fluids and IV antibiotics. - Acute diverticulitis, with perforation - Hyperglycemia: Likely reactive. Continue monitoring DVT prophylaxis: See above, pulmonary embolism management. Diet: Clear liquids, advancing slowly as tolerated. Disposition: Continue care in ICU. Continue with anticoagulation with Lovenox , IV antibiotics and pain management. Symptomatic management Physician Review: Patient Assessed, Agree with Above Assessment and Plan
[2018-09-23] MEDS: PIPER/TAZO/NS 3.375gm 3.375 GM/100 ML BAG IVPB SCH ×3 (01:59→17:09)
[2018-09-23] MEDS: HYDROCODONE/APAP 10/325 TAB PO PRN ×4 (02:07→23:27)
[2018-09-23] MEDS: MEPERIDINE HCL 50 MG/ML AMP IV PRN ×7 (03:04→20:50)
[2018-09-23 05:21] LABS: BUN Blood Urea Nitrogen 5 mg/dL (7-18); Bicarbonate 29 mmol/L (21-32); Glucose Level 71 mg/dL (74-106); Potassium 4.3 mmol/L (3.5-5.1); Sodium Level 137 mmol/L (136-145)
[2018-09-23] MEDS: ARFORMOTEROL TARTRATE 15 MCG/2 ML VIAL.NEB NEB SCH ×2 (08:00→20:20)
[2018-09-23] MEDS: ENOXAPARIN 100 MG/ML SYR SQ SCH ×2 (08:31→20:51)
[2018-09-23] MEDS: NA CHLORIDE 0.9% 1,000 ML IV SCH ×2 (08:31→17:16)
[2018-09-23] MEDS: NICOTINE 21 MG/PAT TD SCH (08:32)
--- NOTE | 2018-09-23 17:34 | P.PN ---
Date of Service: 09/23/18 S: Patient is stable, still no appetite. Vital signs remain stable. Shortness of breath improving. Now just on nasal cannula O: Vital signs stable, adequate urine output. Minimal output through DENNIS drain. White cell count and hemoglobin normal A: Surgically stable P encourage p.o. input, have manipulated pain medicine to trying get him more comfortable and encourage and ambulate. He will most likely be transferred to the floor. I am would order a regular diet, and he may pick off the menu.
--- NOTE | 2018-09-23 18:07 | P.PN ---
Subjective Date of Service: 09/23/18 Chief Complaint: Pulmonary emboli Patient seen and examined. No family at bedside. Chart reviewed and case discussed with RN. Patient is postop day 4 Status post exploratory laparotomy, sigmoid resection, drainage of intra-abdominal abscess, appendectomy in colostomy. NG tube discontinued. Denies any abdominal pain, nausea or vomiting. Colostomy is working. Report no trouble breathing, though still desats. Doing well on Ventimask at 40 %. Denies any chest pain, headache, vision changes, dizziness. Review of Systems As noted Physical Examination - Vital Signs Temperature: 98.4 F Blood Pressure: 143/86 Pulse: 74 Respirations: 14 Pulse Ox (%): 96 - Physical Exam General: Alert, In no apparent distress HEENT: Atraumatic, PERRLA, EOMI Neck: Supple, JVD not distended Respiratory: Clear to auscultation bilaterally, Normal air movement Cardiovascular: Regular rate/rhythm, Normal S1 S2 Gastrointestinal: Normal bowel sounds, Other (Colostomy in working condition) Musculoskeletal: No tenderness Integumentary: No rashes Neurological: Normal speech, Normal tone, Normal affect - Studies Medications List Reviewed: Yes Assessment And Plan - Plan This is a 48-year-old male with: - Pulmonary embolism: Continue Lovenox 90 b.i.d.. Will need to the next 3 months Echo ordered, normal Pulmonology consult, recommendations appreciated. [Patient oxygen desats to 70 with exertion/any movement. Patient was started on heparin drip, then stat CTA was ordered. Emergency CTA with Right middle lobe, right lower lobe and left upper lobe pulmonary emboli. Heparin discontinued, started on Lovenox 90 b.i.d.. He will need to be on anticoagulation for the next 3 months.] -Abdominal pain, secondary to abscess likely from perforated diverticulitis: Dr. Nogueira, surgery consulted. Recommendations appreciated. He is postop day 4. Status post ex lap with sigmoid resection and colostomy placement along with drainage of intra-abdominal abscess, lysis of adhesions and appendectomy. NG tube discontinued. Colostomy in working condition. Trial of full liquid diet. Pain management, continue IV fluids and IV antibiotics. - Acute diverticulitis, with perforation - Hyperglycemia: Likely reactive. Continue monitoring DVT prophylaxis: See above, pulmonary embolism management. Diet: Full liquids, advancing slowly as tolerated. Disposition: Transferred to the floor. Continue with anticoagulation with Lovenox, IV antibiotics and pain management. Symptomatic management Physician Review: Patient Assessed, Agree with Above Assessment and Plan Time Spent Managing PTS Care (In Minutes): 45
[2018-09-24] MEDS: MEPERIDINE HCL 50 MG/ML AMP IV PRN ×6 (00:56→17:36)
[2018-09-24] MEDS: PIPER/TAZO/NS 3.375gm 3.375 GM/100 ML BAG IVPB SCH ×3 (00:57→17:36)
[2018-09-24] MEDS: NA CHLORIDE 0.9% 1,000 ML IV SCH ×3 (00:59→23:34)
[2018-09-24 05:52] LABS: BUN Blood Urea Nitrogen 4 mg/dL (7-18); Bicarbonate 29 mmol/L (21-32); Glucose Level 91 mg/dL (74-106); Magnesium 2.3 mg/dL (1.8-2.4); Potassium 4.3 mmol/L (3.5-5.1); Sodium Level 138 mmol/L (136-145)
[2018-09-24] MEDS: HYDROCODONE/APAP 10/325 TAB PO PRN ×2 (06:14→20:29)
[2018-09-24] MEDS: ARFORMOTEROL TARTRATE 15 MCG/2 ML VIAL.NEB NEB SCH ×2 (08:07→20:06)
[2018-09-24] MEDS: NICOTINE 21 MG/PAT TD SCH (08:48)
[2018-09-24] MEDS: ENOXAPARIN 100 MG/ML SYR SQ SCH (08:49)
--- NOTE | 2018-09-24 12:17 | P.PN ---
Subjective Date of Service: 09/24/18 Chief Complaint: Pulmonary emboli Subjective: Improving (Patient is doing better complaining of abdominal pain no shortness of breaths did ambulate) Review of Systems General: Weakness Gastrointestinal: Abdominal Pain Physical Examination - Vital Signs Temperature: 98.8 F Blood Pressure: 178/90 Pulse: 79 Respirations: 18 Pulse Ox (%): 92 - Physical Exam General: Alert, Oriented x3 HEENT: Atraumatic Neck: Supple Respiratory: Clear to auscultation bilaterally Cardiovascular: No edema, Normal S1 S2 - Studies Medications List Reviewed: Yes Assessment & Plan - Problems (Diagnosis) (1) Pulmonary embolism Current Visit: Yes Status: Acute Plan: Patient is 48 years of age admitted with postoperative thromboembolism this currently tolerating a diet passing gas possible Dc antibiotics change to p.o. Xarelto niece to be on Xarelto for 3 months 15 mg twice a day for 3 weeks then 20 mg once a day wound shows E coli can change control coordinator to narrow spectrum antibiotic Qualifiers: Chronicity: acute Physician Review: Patient Assessed, Agree with Above Assessment and Plan
[2018-09-24] MEDS ORDERED: HYDRALAZINE HCL 20 MG/ML VIAL IV PRN (13:31)
--- NOTE | 2018-09-24 15:20 | P.PN ---
Subjective Date of Service: 09/24/18 Chief Complaint: Pulmonary emboli Patient seen and examined. No family at bedside. Chart reviewed and case discussed with RN. Patient is postop day 5 Status post exploratory laparotomy, sigmoid resection, drainage of intra-abdominal abscess, appendectomy in colostomy. States he has pain at the incision site. Denies any abdominal pain , nausea or vomiting. Colostomy is working. And tolerating regular diet Downgraded to the floor from ICU. Breathing well on nasal cannula, reports no dyspnea upper respiratory distress.. Review of Systems As noted Physical Examination - Vital Signs Temperature: 98.8 F Blood Pressure: 127/62 Pulse: 77 Respirations: 18 Pulse Ox (%): 92 - Physical Exam General: Alert, In no apparent distress, Oriented x3 HEENT: Atraumatic, PERRLA, EOMI Neck: Supple, JVD not distended Respiratory: Clear to auscultation bilaterally, Normal air movement Cardiovascular: Regular rate/rhythm, Normal S1 S2 Gastrointestinal: Normal bowel sounds, Other (Incision clean, dry and intact. Colostomy in working condition.), Tenderness Musculoskeletal: No tenderness Integumentary: No rashes Neurological: Normal speech, Normal tone, Normal affect - Studies Medications List Reviewed: Yes Assessment And Plan - Plan This is a 48-year-old male with: - Pulmonary embolism: Continue Lovenox 90 b.i.d.. Will need to continue for the next 3 months Echo ordered, normal Pulmonology consult, recommendations appreciated. [Patient oxygen desats to 70 with exertion/any movement. Patient was started on heparin drip, then stat CTA was ordered. Emergency CTA with Right middle lobe, right lower lobe and left upper lobe pulmonary emboli. Heparin discontinued, started on Lovenox 90 b.i.d.. He will need to be on anticoagulation for the next 3 months.] -Abdominal pain, secondary to abscess likely from perforated diverticulitis: Dr. Nogueira, surgery consulted. Recommendations appreciated. He is postop day 5 Status post ex lap with sigmoid resection and colostomy placement along with drainage of intra-abdominal abscess, lysis of adhesions and appendectomy. NG tube discontinued. Colostomy in working condition. Tolerating regular diet. Pain management, continue IV fluids and IV antibiotics. - Acute diverticulitis, with perforation - Hyperglycemia: Resolved. Likely reactive. Continue monitoring DVT prophylaxis: See above, pulmonary embolism management. Diet: Full liquids, advancing slowly as tolerated. Disposition: Continue with anticoagulation with Lovenox, IV antibiotics and pain management. Symptomatic management Physician Review: Patient Assessed, Agree with Above Assessment and Plan Time Spent Managing PTS Care (In Minutes): 45
--- NOTE | 2018-09-24 19:01 | P.PN ---
Date of Service: 09/24/18 S: Patient had a good day today. Much brighter outlook. O: DENNIS drain has been discontinued, vital signs are stable, incisions are clean and colostomy is working well. A: Surgically stable P: Patient will be discharged soon, we will arrange for home health care to instructed and help with colostomy.
[2018-09-24] MEDS: RIVAROXABAN 15 MG TABLET PO SCH (20:29)
[2018-09-25] MEDS: HYDROCODONE/APAP 10/325 TAB PO PRN ×2 (00:01→05:02)
[2018-09-25] MEDS: PIPER/TAZO/NS 3.375gm 3.375 GM/100 ML BAG IVPB SCH ×3 (01:05→16:47)
[2018-09-25] MEDS: MEPERIDINE HCL 50 MG/ML AMP IV PRN ×8 (02:16→22:29)
[2018-09-25] MEDS: NA CHLORIDE 0.9% 1,000 ML IV SCH ×2 (05:03→20:36)
[2018-09-25] MEDS: ARFORMOTEROL TARTRATE 15 MCG/2 ML VIAL.NEB NEB SCH ×2 (07:24→20:02)
[2018-09-25] MEDS: NICOTINE 21 MG/PAT TD SCH (08:27)
[2018-09-25] MEDS: RIVAROXABAN 15 MG TABLET PO SCH ×2 (08:27→20:36)
--- NOTE | 2018-09-25 16:23 | P.PN ---
Subjective Date of Service: 09/25/18 Chief Complaint: Pulmonary emboli Patient seen and examined. No family at bedside. Chart reviewed and case discussed with RN. Patient is postop day 6 Status post exploratory laparotomy, sigmoid resection, drainage of intra-abdominal abscess, appendectomy in colostomy. States he has pain at the incision site, worse after walking around after taking a shower.. Denies any abdominal pain, nausea or vomiting. Colostomy is working. And tolerating regular diet . Breathing well on nasal cannula, reports no dyspnea upper respiratory distress.. Review of Systems As noted Physical Examination - Vital Signs Temperature: 97.1 F Blood Pressure: 150/95 Pulse: 83 Respirations: 20 Pulse Ox (%): 90 - Physical Exam General: Alert, In no apparent distress HEENT: Atraumatic, PERRLA, EOMI Neck: Supple, JVD not distended Respiratory: Clear to auscultation bilaterally, Normal air movement Cardiovascular: Regular rate/rhythm, Normal S1 S2 Gastrointestinal: Normal bowel sounds, Other (Colostomy in working condition. Incision sites checked, no evidence of bleeding/drainage. Dressing dry/clean/ intact), Tenderness Musculoskeletal: No tenderness Integumentary: No rashes Neurological: Normal speech, Normal tone, Normal affect Lymphatics: No axilla or inguinal lymphadenopathy - Studies Medications List Reviewed: Yes Assessment And Plan - Plan This is a 48-year-old male with: - Pulmonary embolism: Continue Lovenox 90 b.i.d.. Will need to continue for the next 3 months Echo ordered, normal Pulmonology consult, recommendations appreciated. [Patient oxygen desats to 70 with exertion/any movement. Patient was started on heparin drip, then stat CTA was ordered. Emergency CTA with Right middle lobe, right lower lobe and left upper lobe pulmonary emboli. Heparin discontinued, started on Lovenox 90 b.i.d.. He will need to be on anticoagulation for the next 3 months.] -Abdominal pain, secondary to abscess likely from perforated diverticulitis: Dr. Nogueira, surgery consulted. Recommendations appreciated. He is postop day 5 Status post ex lap with sigmoid resection and colostomy placement along with drainage of intra-abdominal abscess, lysis of adhesions and appendectomy. NG tube discontinued. Colostomy in working condition. Tolerating regular diet. Pain management, continue IV fluids and IV antibiotics. - Acute diverticulitis, with perforation - Hyperglycemia: Resolved. Likely reactive. Continue monitoring DVT prophylaxis: See above, pulmonary embolism management. Diet: Full liquids, advancing slowly as tolerated. Disposition: Continue with anticoagulation with Lovenox, IV antibiotics and pain management. Symptomatic management. Pending home health IV antibiotics set up. Physician Review: Patient Assessed, Agree with Above Assessment and Plan Time Spent Managing PTS Care (In Minutes): 45
[2018-09-26] MEDS: PIPER/TAZO/NS 3.375gm 3.375 GM/100 ML BAG IVPB SCH ×3 (00:22→16:53)
[2018-09-26] MEDS: MEPERIDINE HCL 50 MG/ML AMP IV PRN ×6 (00:23→20:50)
[2018-09-26] MEDS: NA CHLORIDE 0.9% 1,000 ML IV SCH (05:26)
[2018-09-26] MEDS: RIVAROXABAN 15 MG TABLET PO SCH ×2 (08:36→20:49)
[2018-09-26] MEDS: NICOTINE 21 MG/PAT TD SCH (08:44)
[2018-09-26] MEDS: ARFORMOTEROL TARTRATE 15 MCG/2 ML VIAL.NEB NEB SCH ×2 (09:00→20:16)
[2018-09-26] MEDS: HYDROCODONE/APAP 10/325 TAB PO PRN ×2 (10:51→14:43)
--- NOTE | 2018-09-26 22:59 | P.PN ---
Subjective Date of Service: 09/26/18 Chief Complaint: Pulmonary emboli Patient seen and examined. No family at bedside. Chart reviewed and case discussed with RN. Patient is postop day 7 Status post exploratory laparotomy, sigmoid resection, drainage of intra-abdominal abscess, appendectomy in colostomy. Denies any abdominal pain, nausea or vomiting. Colostomy is working. And tolerating regular diet . Breathing well on nasal cannula, reports no dyspnea upper respiratory distress.. Review of Systems As noted Physical Examination - Vital Signs Temperature: 98 F Blood Pressure: 140/84 Pulse: 86 Respirations: 18 Pulse Ox (%): 92 - Physical Exam General: Alert, In no apparent distress, Oriented x3 HEENT: Atraumatic, PERRLA, EOMI Neck: Supple, JVD not distended Respiratory: Clear to auscultation bilaterally, Normal air movement Cardiovascular: Regular rate/rhythm, Normal S1 S2 Gastrointestinal: Normal bowel sounds, Other (incision site c/d/i; colostomy in working condition) Musculoskeletal: No tenderness Integumentary: No rashes Neurological: Normal speech, Normal tone, Normal affect - Studies Medications List Reviewed: Yes Assessment And Plan - Plan This is a 48-year-old male with: - Pulmonary embolism: Continue Lovenox 90 b.i.d.. Will need to continue for the next 3 months Echo ordered, normal Pulmonology consult, recommendations appreciated. [Patient oxygen desats to 70 with exertion/any movement. Patient was started on heparin drip, then stat CTA was ordered. Emergency CTA with Right middle lobe, right lower lobe and left upper lobe pulmonary emboli. Heparin discontinued, started on Lovenox 90 b.i.d.. He will need to be on anticoagulation for the next 3 months.] -Abdominal pain, secondary to abscess likely from perforated diverticulitis: Dr. Nogueira, surgery consulted. Recommendations appreciated. He is postop day 6 Status post ex lap with sigmoid resection and colostomy placement along with drainage of intra-abdominal abscess, lysis of adhesions and appendectomy. NG tube discontinued. Colostomy in working condition. Tolerating regular diet. Pain management, continue IV fluids and IV antibiotics. - Acute diverticulitis, with perforation - Hyperglycemia: Resolved. Likely reactive. Continue monitoring DVT prophylaxis: See above, pulmonary embolism management. Diet: Full liquids, advancing slowly as tolerated. Disposition: Continue with anticoagulation with Lovenox, IV antibiotics and pain management. Symptomatic management. Pending home health IV antibiotics set up. Physician Review: Patient Assessed, Agree with Above Assessment and Plan
[2018-09-27] MEDS: MEPERIDINE HCL 50 MG/ML AMP IV PRN ×5 (00:09→14:17)
[2018-09-27] MEDS: PIPER/TAZO/NS 3.375gm 3.375 GM/100 ML BAG IVPB SCH ×3 (00:47→16:24)
[2018-09-27] MEDS: HYDROCODONE/APAP 10/325 TAB PO PRN ×2 (05:26→16:25)
[2018-09-27 06:13] LABS: BUN Blood Urea Nitrogen 3 mg/dL (7-18); Bicarbonate 27 mmol/L (21-32); Glucose Level 87 mg/dL (74-106); Magnesium 2.1 mg/dL (1.8-2.4); Potassium 3.2 mmol/L (3.5-5.1); Sodium Level 138 mmol/L (136-145)
[2018-09-27] MEDS ORDERED: POTASSIUM CL SA 10 MEQ TAB PO ONE (06:22)
[2018-09-27] MEDS: ARFORMOTEROL TARTRATE 15 MCG/2 ML VIAL.NEB NEB SCH (08:00)
[2018-09-27] MEDS: RIVAROXABAN 15 MG TABLET PO SCH (08:46)
[2018-09-27] MEDS: NICOTINE 21 MG/PAT TD SCH (08:47)
[2018-09-27 10:34] LABS: Absolute Lymphocytes (CBC) 2.7 K/uL (0.7-4.9); Absolute Monocytes 1.1 K/uL (0.1-1.3); Absolute Neutrophil 10.9 K/uL (1.8-8.0); Basophils % 0.5 % (0-1.3); Eosinophils % 1.8 % (0-4.4); Hematocrit 38.6 % (39.6-49.0); Lymphocytes % 17.7 % (15.3-44.8); MCH 32.4 pg (27.0-35.0); MCV 93.2 fL (80-100); MPV 6.7 fL (7.6-11.3); Monocytes % 7.1 % (3.3-12.3); RBC Red Blood Cell Count 4.14 M/uL (4.33-5.43)
== END 2018-09-27 17:28 | disposition home health service (06) | DRG 329 ==
LOC: ER 00:49 → ERHOLD 01:12 → 4TH 03:18 → 3RD-ICU 16:25 → 4TH 09-23 17:55
PROVIDERS: ADMIT Internal Medicine; ATTEND Family Medicine
PROC: 0D1N0Z4 Bypass Sigmoid Colon to Cutaneous, Open Approach (ICD-10-PCS; 2018-09-19)
PROC: 0DTJ0ZZ Resection of Appendix, Open Approach (ICD-10-PCS; 2018-09-19)
PROC: 0W9G0ZX Drainage of Peritoneal Cavity, Open Approach, Diagnostic (ICD-10-PCS; 2018-09-19)
PROC: 0DTN0ZZ Resection of Sigmoid Colon, Open Approach (ICD-10-PCS; principal; 2018-09-19 12:30)
DX: K57.20 Diverticulitis of large intestine with perforation and abscess without bleeding (principal); I26.99 Other pulmonary embolism without acute cor pulmonale; F17.210 Nicotine dependence, cigarettes, uncomplicated; R73.9 Hyperglycemia, unspecified; Z88.0 Allergy status to penicillin
CPT/HCPCS: 36415; 71275; 74176; 76377; 80048; 80076; 81003; 83690; 83735; 84132; 85025; 85610; 85730; 87070; 87075; 87077; 87185; 87186; 87205; 88307; 93306; 93970; 94640; 96365; 96367; 96375; 97163; 99285; J0744; J1100; J1170; J1644; J1650; J2175; J2250; J2370; J2405; J2543; J2704; J2710; J3010; J7030; J7605; Q9967

== ENCOUNTER 2019-05-30 07:00 | Inpatient (IN) | payer BC ==
[2019-05-26 15:11] LABS: Absolute Lymphocytes (CBC) 2.8 K/uL (0.7-4.9); Basophils % 1.2 % (0-1.3); Eosinophils % 2.1 % (0-4.4); Hematocrit 50.7 % (39.6-49.0); Monocytes % 6.7 % (3.3-12.3); RBC Red Blood Cell Count 5.36 M/uL (4.33-5.43)
[2019-05-26 15:24] LABS: Potassium 4.6 mmol/L (3.5-5.1)
[2019-05-30] MEDS ORDERED: CEFOXITIN/SWI 1gm 1 GM/10 ML SYR ONE (07:34)
[2019-05-30] MEDS ORDERED: Ringers Lactate 1,000 ML IV ONE (07:34)
--- NOTE | 2019-05-30 08:31 | P.HP ---
Date of Service: 05/30/19 PC: This 48-year-old male presents for a colostomy takedown. HPC: Patient initially had complications of diverticular disease with rupture and abscess. Underwent exploratory laparotomy with end-colostomy and Theo' s pouch. Over the last few months has gradually healed, had a colonoscopy which was negative. She presents now for cheondoism of bowel continuity. PMH: Upper arm DVT PSHx: Exploratory laparotomy with colostomy SOC: Allergic to penicillins SYS REVIEW: No cough, wheeze, shortness of breath. No chest pain or palpitations. Denies any urinary complaints. Has been in good health over the last few weeks and has good exercise tolerance. O/E awake alert vital signs are stable HEENT: Within normal limits Chest: Air entry is equal bilaterally ABD: Colostomy, midline incision with possible hernia LOCO: Intact DATA: Within normal limits IMPRESSION: End colostomy and desired to have his bowel continuity restored PLAN: I will take him to the operating room for exploratory laparotomy and colostomy takedown. The risks of this procedure have been discussed. The possibility of bleeding, infection, injury to the spleen blood vessels and ureters was outlined. Possible unforeseen complications were explained. Anastomotic leak, stricture formation, ran need for surgeries and procedures in the future including colostomy were explained. He understands and wants us to proceed.
[2019-05-30] MEDS ORDERED: BUPIVACA 0.25%/EPI 0.0005% MDV 50 ML VIAL ONE (08:34)
[2019-05-30] MEDS ORDERED: ROCURONIUM 50 MG/5 ML VIAL IV ONE ×2 (08:37→09:57)
[2019-05-30] MEDS ORDERED: PROPOFOL 200 MG/20 ML VIAL IV ONE (08:37)
[2019-05-30] MEDS ORDERED: MIDAZOLAM HCL 2 MG/2 ML INJ ONE (08:37)
[2019-05-30] MEDS ORDERED: LIDOCAINE 2% MPF 5 ML VIAL ONE (08:37)
[2019-05-30] MEDS ORDERED: FENTANYL CITR 100 MCG/2 ML ONE ×4 (08:37→10:23)
[2019-05-30] MEDS ORDERED: NA CHLORIDE 0.9% 1,000 ML ONE (09:55)
[2019-05-30] MEDS ORDERED: KETOROLAC 30 MG/ML INJ ONE (11:11)
[2019-05-30] MEDS ORDERED: GLYCOPYRROLATE 0.2 MG/ML SYR ONE (11:11)
[2019-05-30] MEDS ORDERED: NEOSTIGMINE 1 MG/ML -10 ML VIAL ONE (11:12)
[2019-05-30] MEDS ORDERED: ONDANSETRON 4 MG/2 ML VIAL ONE (11:12)
[2019-05-30] MEDS ORDERED: ONDANSETRON 4 MG/2 ML VIAL IV PRN (11:29)
[2019-05-30] MEDS ORDERED: MEPERIDINE HCL 25 MG/0.5 ML ONE ×2 (11:37→11:47)
--- NOTE | 2019-05-30 11:40 | P.OP ---
Preoperative diagnosis: Colostomy secondary to complications of diverticular disease Postoperative diagnosis: The same Primary procedure: Exploratory laparotomy, colostomy takedown Secondary procedure: Mobilize a holguin of the splenic flexure Other procedure(s): Colorectal anastomosis Anesthesia: General Estimated blood loss: Less than 50 cc Specimen: donuts from the anastomosis, colostomy remenants Operative Technique: The patient was brought to the operating room and placed supine on the table. After the induction of adequate anesthesia he was converted to lithotomy. Benson catheter was inserted. The area of the abdomen was prepped after sewing the colostomy shut with a running suture of silk. The patient was then draped in usual aseptic manner. A generous midline incision was made. This brought down through the skin and subcutaneous tissue. The peritoneal cavity was entered and the incision was opened for the full length. At this point were able inspect the peritoneal cavity. There were some adhesions in the right lower pelvis. These were taken down using blunt sharp dissection. Further dissection allowed us to take down some adhesions of the omentum to the anterior abdominal wall the right upper quadrant. Attention was turned towards the left side of the abdomen. We could see the Jose R omental adhesions around her colostomy site. These were taken down using blunt sharp dissection. The omentum was now completely freed from the anterior abdominal wall and off of the intestines. The colostomy was now detached from the anterior abdominal wall at the level of the fascia. This was done using a CA. The bowel was now traced up to the left upper quadrant. It was necessary to open the white line of Toldt all the way up to the splenic flexure. The via bowel as I dissected out arose fascia. The splenic flexure was mobilized using the ligature in judicious dissection. The left colon was now freed allowed a fall bound into the true pelvis. Detachment of some of the mesenteric it fat allowed us to get enough length to reach into the pelvis itself. Attention was now turned down towards the pelvis. The rectal stump was identified. A 20. 6 lb Sizer was passed up into the rectal stump. This was removed and replaced with a 29. We were eventually able to get a 33 [place] dilator up into the rectal stump. There was a lot of old mucous in that area that we were able to dislodge. The 29 EEA was now placed into the rectal cavity. Attention was turned towards the lower end of our bowel. A pursestring device is placed across the bowel and a 29 anvil inserted. The pursestring was now stone cinched down. Are this is placed down into the true pelvis over the stylet that had been brought out through the rectal stump. The EEA was now compressed and fired in the usual manner. A good anastomosis having mean formed , the abdomen is inspected to ensure adequate hemostasis. Attention was turned towards the colostomy in the left side of the abdomen. This was detached at the level of the skin and removed completely. The facile defect posteriorly was closed with a running suture of PDS and anteriorly with 3 interrupted sutures of PDS. At this point the intestines were run from the ligament of Treitz down to the ileocecal valve. There were a bunch of small adhesions of the small bowel in the right lower quadrant and down into the true pelvis. These were taken down using blunt sharp dissection. The bowel now having completed completely freed the cecum was placed in the right lower quadrant the small intestines were placed in their normal anatomical position. The omentum was down ticket puller the bowel itself and the midline incision was closed with a running suture of PDS. At this point he needs time needle sponge instrument count were correct. The skin was approximated with mary kay. Sterile dressings were applied At the end of procedure he was in a stable condition when sent to the recovery room. Needle sponge instrument count were correct. No drains were placed. Complications: None Transferred to: Recovery Room Condition: Good
[2019-05-30] MEDS: HYDROMORPHONE HCL 2 MG/ML inj ONE ×4 (11:42→12:12)
[2019-05-30] MEDS: Ringers Lactate 1,000 ML IV SCH ×2 (12:00→19:58)
[2019-05-30 12:40] VITALS: BMI 25.9
[2019-05-30] MEDS: MEPERIDINE HCL 25 MG/0.5 ML IV PRN ×3 (13:06→21:41)
[2019-05-30] MEDS: NICOTINE 21 MG/PAT TD SCH (15:02)
[2019-05-30] MEDS: HYDROCODONE/APAP 7.5/325 MG TAB PO PRN (19:58)
[2019-05-31] MEDS: MEPERIDINE HCL 25 MG/0.5 ML IV PRN ×6 (01:56→22:35)
[2019-05-31] MEDS: Ringers Lactate 1,000 ML IV SCH ×2 (03:26→10:37)
[2019-05-31] MEDS: HYDROCODONE/APAP 7.5/325 MG TAB PO PRN ×5 (04:05→20:53)
[2019-05-31 06:56] LABS: Absolute Lymphocytes (CBC) 1.6 K/uL (0.7-4.9); Basophils % 0.9 % (0-1.3); Eosinophils % 2.2 % (0-4.4); Hematocrit 43.9 % (39.6-49.0); Lymphocytes % 20.3 % (15.3-44.8); Monocytes % 7.4 % (3.3-12.3)
[2019-05-31 07:05] LABS: Potassium 4.3 mmol/L (3.5-5.1)
[2019-05-31] MEDS: NICOTINE 21 MG/PAT TD SCH (08:14)
[2019-06-01] MEDS: HYDROCODONE/APAP 7.5/325 MG TAB PO PRN ×6 (00:36→21:02)
[2019-06-01] MEDS: MEPERIDINE HCL 25 MG/0.5 ML IV PRN ×6 (02:29→23:00)
[2019-06-01] MEDS: Ringers Lactate 1,000 ML IV SCH ×2 (04:58→07:00)
[2019-06-01] MEDS: NICOTINE 21 MG/PAT TD SCH (08:42)
--- NOTE | 2019-06-01 17:04 | P.PN ---
Date of Service: 06/01/19 S: Patient appears to doing well today, up ambulating, tolerating a diet. States his pain is under control. Has some trouble voiding yesterday in the catheter had a be reinserted. It was removed this morning and now voiding on his own. O: Vital signs remain stable, incisions clean A : Still has minimal bowel sounds. No gas or stool per rectum yet. Has been up ambulating, not in any discomfort appears to have his pain well controlled. P: Continuing to mobilize patient, anticipate discharge on Thursday. (appears to be a progress note from yesterday missing)
[2019-06-01] MEDS: MEPERIDINE HCL 50 MG/ML AMP IV PRN (22:59)
[2019-06-02] MEDS: HYDROCODONE/APAP 7.5/325 MG TAB PO PRN ×6 (01:29→22:39)
[2019-06-02] MEDS: Ringers Lactate 1,000 ML IV SCH ×3 (02:30→23:00)
[2019-06-02] MEDS: MEPERIDINE HCL 25 MG/0.5 ML IV PRN ×3 (03:15→12:35)
[2019-06-02] MEDS: NICOTINE 21 MG/PAT TD SCH (09:04)
--- NOTE | 2019-06-02 14:39 | P.PN ---
Date of Service: 06/02/19 S: Patient appears to be doing well today. Still not having regular bowel movements. It is apparently passing gas per rectum. In the [place] with OT and physical therapy at the moment. Appears to be handling it very well. He has no complaints. O: Vital signs are stable, incisions clean A: Surgically stable P: I think clinically the patient may be stable for discharge tomorrow. I have discussed this with him. He will work hard tonight to make it happen.
[2019-06-02] MEDS: MEPERIDINE HCL 50 MG/ML AMP IV PRN ×2 (16:23→20:14)
[2019-06-03] MEDS: MEPERIDINE HCL 50 MG/ML AMP IV PRN ×3 (00:58→12:39)
[2019-06-03] MEDS: HYDROCODONE/APAP 7.5/325 MG TAB PO PRN ×2 (05:35→11:01)
[2019-06-03] MEDS: MEPERIDINE HCL 25 MG/0.5 ML IV PRN (08:03)
[2019-06-03] MEDS: NICOTINE 21 MG/PAT TD SCH (08:04)
[2019-06-03 09:21] VITALS: BP 157/92; TEMP 98.6
[2019-06-03 09:51] VITALS: O2SAT 91
== END 2019-06-03 15:20 | disposition home or self-care (01) | DRG 331 ==
LOC: OR 07:00 → 4TH 11:23 → OR 06-01 08:25 → 4TH 06-01 08:25
PROVIDERS: ADMIT Surgery; ATTEND Surgery
PROC: 0DBE0ZZ Excision of Large Intestine, Open Approach (ICD-10-PCS; principal; 2019-05-30 08:30)
DX: Z43.3 Encounter for attention to colostomy (principal); K57.30 Diverticulosis of large intestine without perforation or abscess without bleeding; Z86.718 Personal history of other venous thrombosis and embolism; Z88.0 Allergy status to penicillin
CPT/HCPCS: 36415; 80048; 85025; 88304; 88305; 97116; 97163; 97530; J1170; J2175; J2250; J2405; J2704; J2710; J3010; J7030

== ENCOUNTER → 2023-12-22 | Emergency (ER) | payer OTHER ==
[~2023-12-22] MED LIST: CIPROFLOXACIN HCL 500 MG TAB ONE; FAMOTIDINE 20 MG/2 ML VIAL IV ONE; HYDROCODONE/APAP 10/325 TAB ONE; KETOROLAC 30 MG/ML INJ ONE; NA CHLORIDE 0.9% 1,000 ML ONE; metroNIDAZOLE 500 MG TABLET ONE
[2023-12-22 11:21] LABS: Absolute Lymphocytes (CBC) 3.1 K/uL (0.7-4.9); Hematocrit 53.3 % (39.6-49.0); Lymphocytes % 25.1 % (15.3-44.8); MCV 95.6 fL (80-100); MPV 7.7 fL (7.6-11.3); Platelets 177 thou/uL (152-406); RBC Red Blood Cell Count 5.57 M/uL (4.33-5.43)
[2023-12-22 11:39] LABS: Albumin 3.9 g/dL (3.4-5.0); Potassium 4.1 mEq/L (3.5-5.1); Protein, Total 7.3 g/dL (6.4-8.2)
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
--- NOTE | 2023-12-22 13:38 | EDPHYS ---
Physician Documentation [facility] Name: Darvin Paris Age: 53 yrs Sex: Male : 1970 Arrival Date: 12/22/2023 Time: 10:09 Bed 15 Private MD: ED Physician Radames Figueredo HPI: 12/22 17:23 This 53 yrs old Male presents to ER via Ambulatory with complaints of Abdominal Pain. kdr 17:23 Patient presents to the ED with upper right-sided abdominal pain. This been going since kdr last night. Patient states that the pain is mild. Patient denies nausea, vomiting or diarrhea.. Onset: The symptoms/episode began/occurred last night. Severity of symptoms: At their worst the symptoms were mild moderate just prior to arrival, in the emergency department the symptoms are unchanged. The patient has not experienced similar symptoms in the past. The patient has not recently seen a physician. Historical: - Allergies: 10:16 PENICILLINS; kc6 - PMHx: 10:16 Diverticulitis; Hypertensive disorder; hernia; kc6 - PSHx: 10:16 Colostomy; bowel resection; Appendectomy; kc6 - Immunization history:: Client reports having NOT received the Covid vaccine. Flu vaccine is not up to date. - Social history:: Smoking status: Patient reports the use of cigarette tobacco products, smokes one pack cigarettes per day. ROS: 17:23 Constitutional: Negative for fever, chills, and weight loss, Eyes: Negative for injury, kdr pain, redness, and discharge, ENT: Negative for injury, pain, and discharge, Neck: Negative for injury, pain, and swelling, Cardiovascular: Negative for chest pain, palpitations, and edema, Respiratory: Negative for shortness of breath, cough, wheezing, and pleuritic chest pain, Back: Negative for injury and pain, : Negative for injury, bleeding, discharge, and swelling, MS/Extremity: Negative for injury and deformity, Skin: Negative for injury, rash, and discoloration, Neuro: Negative for headache, weakness, numbness, tingling, and seizure activity. Psych: Negative for depression, anxiety, suicide ideation, homicidal ideation, and hallucinations, Allergy/Immunology: Negative for hives, rash, and allergies, Endocrine: Negative for neck swelling, polydipsia, polyuria, polyphagia, and marked weight changes, Hematologic/Lymphatic: Negative for swollen nodes, abnormal bleeding, and unusual bruising, 17:23 Abdomen/GI: Positive for abdominal pain, Negative for nausea and vomiting, nausea, vomiting, and diarrhea, nausea, constipation, abdominal cramps, abdominal distension, anorexia, dysphagia, black/tarry stool, rectal pain, rectal bleeding, Exam: 17:23 Constitutional: This is a well developed, well nourished patient who is awake, alert, kdr and in no acute distress. Head/Face: Normocephalic, atraumatic. Eyes: Pupils equal round and reactive to light, extra-ocular motions intact. Lids and lashes normal. Conjunctiva and sclera are non-icteric and not injected. Cornea within normal limits. Periorbital areas with no swelling, redness, or edema. Neck: Trachea midline, no thyromegaly or masses palpated, and no cervical lymphadenopathy. Supple, full range of motion without nuchal rigidity, or vertebral point tenderness. No Meningismus. Chest/axilla: Normal chest wall appearance and motion. Nontender with no deformity. No lesions are appreciated. Cardiovascular: Regular rate and rhythm with a normal S1 and S2. No gallops, murmurs, or rubs. Normal PMI, no JVD. No pulse deficits. Respiratory: Lungs have equal breath sounds bilaterally, clear to auscultation and percussion. No rales, rhonchi or wheezes noted. No increased work of breathing, no retractions or nasal flaring. Back: No spinal tenderness. No costovertebral tenderness. Full range of motion. Skin: Warm, dry with normal turgor. Normal color with no rashes, no lesions, and no evidence of cellulitis. MS/ Extremity: Pulses equal, no cyanosis. Neurovascular intact. Full, normal range of motion. Neuro: Awake and alert, GCS 15, oriented to person, place, time, and situation. Cranial nerves II-XII grossly intact. Motor strength 5/5 in all extremities. Sensory grossly intact. Cerebellar exam normal. Normal gait. Psych: Awake, alert, with orientation to person, place and time. Behavior, mood, and affect are within normal limits. 17:23 Abdomen/GI: Inspection: abdomen appears normal, Bowel sounds: active, Palpation: soft, mild abdominal tenderness, in the anterior aspect of right lateral abdomen and right upper quadrant, Vital Signs: 10:15 BP 171 / 108; Pulse 78; Resp 16 S; Temp 97.8(TE); Pulse Ox 100% on R/A; Weight 86.18 kg kc6 (R); Height 5 ft. 9 in. (R); Pain 2/10; 12:24 BP 143 / 108; Pulse 64; Resp 16; Pulse Ox 97% ; bp 10:15 Body Mass Index 28.06 (86.18 kg, 175.26 cm) kc6 10:15 Pain Scale: Adult kc6 MDM: 13:37 Patient medically screened. kdr 17:23 Data reviewed: vital signs, nurses notes, lab test result(s), radiologic studies. kdr 12/22 10:17 Order name: CBC with Diff; Complete Time: 11:34 kdr 12/22 10:17 Order name: CMP; Complete Time: 11:46 kdr 12/22 10:17 Order name: Lipase; Complete Time: 11:46 kdr 12/22 10:59 Order name: CT Abd/Pelvis - IV Contrast Only; Complete Time: 12:41 kdr 12/22 10:17 Order name: IV Saline Lock; Complete Time: 11:10 kdr 12/22 10:17 Order name: Labs collected and sent; Complete Time: 11:10 kdr Administered Medications: 12:16 Drug: NS 0.9% IV 1000 ml IV at 1 bolus Per protocol; 1000 mL bolus Route: IV; Rate: 1 bp bolus; Site: right forearm; 13:57 Follow up: Response: No adverse reaction; IV Status: Completed infusion; IV Intake: as6 1000ml 13:20 Drug: Ciprofloxacin PO 500 mg PO once Route: PO; bp 13:57 Follow up: Response: No adverse reaction as6 13:20 Drug: metroNIDAZOLE PO 500 mg PO once Route: PO; bp 13:57 Follow up: Response: No adverse reaction as6 13:20 Not Given (Patient Refused): norco10 mg-325 mg 1 tabs PO once bp 13:20 Drug: Famotidine IVP 20 mg IVP once; dilute with 10 mL 0.9% NaCl; give over 2 minutes bp Route: IVP; Site: right forearm; 13:54 Follow up: Response: No adverse reaction as6 13:54 Drug: Ketorolac IVP 15 mg IVP once Route: IVP; Site: right forearm; as6 13:54 Follow up: Response: No adverse reaction as6 Disposition Summary: 12/22/23 13:37 Discharge Ordered Notes: Location: Home kdr Problem: new kdr Symptoms: have improved kdr Condition: Stable kdr Diagnosis - Abdominal pain, Generalized kdr - Infectious gastroenteritis and colitis, unspecified kdr Followup: kdr - With: Private Physician - When: 2 - 3 days - Reason: If symptoms return, Further diagnostic work-up, Recheck today's complaints, Continuance of care, Re-evaluation by your physician Discharge Instructions: - Discharge Summary Sheet kdr - Abdominal Pain, Adult, [id number] kdr - Colitis kdr Forms: - Medication Reconciliation Form kdr - Thank You Letter kdr - Antibiotic Education kdr - Prescription Opioid Use kdr - Patient Portal Instructions kdr - Leadership Thank You Letter kdr - Work release form as6 Prescriptions: - Flagyl 500 mg Oral Tablet - take 1 tablet ORAL route every 6 hours for 10 days; 40 tablet; Refills: 0, kdr Product Selection Permitted - Zofran 4 mg Oral tablet - take 1 tablet ORAL route every 4-6 hours As needed; 12 tablet; Refills: 0, kdr Product Selection Permitted - Cipro 500 mg Oral tablet - take 1 tablet ORAL route every 12 hours for 10 days; 20 tablet; Refills: 0, kdr Product Selection Permitted - Tramadol 50 mg Oral Tablet - take 1 tablet ORAL route every 8 hours as needed; 12 tablet; Refills: 0, kdr Product Selection Permitted - Pepcid 20 mg Oral Tablet - take 1 tablet ORAL route once daily for 10 days; 10 tablet; Refills: 0, Product kdr Selection Permitted Signatures: Dispatcher [employer] Radames Angulo MD MD kdr Vitaliy Castro, RN RN bp Max Garcia RN RN as6 Aide Sanders RN RN kc6
--- NOTE | 2023-12-22 13:38 | ER ---
Nurse's Notes [facility] Name: Darvin Paris Age: 53 yrs Sex: Male : 1970 Arrival Date: 12/22/2023 Time: 10:09 Bed 15 Private MD: Diagnosis: Abdominal pain, Generalized;Infectious gastroenteritis and colitis, unspecified Presentation: 12/22 10:15 Chief complaint: Patient states: intermittent lower abd pain for 24hrs. denies n/v/d. kc6 rates 12/26. Coronavirus screen: At this time, the client does not indicate any symptoms associated with coronavirus-19. Ebola Screen: No symptoms or risks identified at this time. Initial Sepsis Screen: Does the patient meet any 2 criteria? No. Patient's initial sepsis screen is negative. Does the patient have a suspected source of infection? No. Patient's initial sepsis screen is negative. Risk Assessment: Do you want to hurt yourself or someone else? Patient reports no desire to harm self or others. Onset of symptoms was December 22, 2023. 10:15 Method Of Arrival: Ambulatory [facility] 10:15 Acuity: RICHARD 3 kc6 Triage Assessment: 10:16 General: Appears in no apparent distress. comfortable, well groomed, well developed, kc6 Behavior is calm, cooperative, appropriate for age. Pain: Complains of pain in right lower quadrant and left lower quadrant Pain currently is 2 out of 10 on a pain scale. at worst was 7 out of 10 on a pain scale. GI: Abdomen is flat, non-distended, Reports lower abdominal pain, Patient currently denies diarrhea, nausea, vomiting. Historical: - Allergies: 10:16 PENICILLINS; kc6 - PMHx: 10:16 Diverticulitis; Hypertensive disorder; hernia; kc6 - PSHx: 10:16 Colostomy; bowel resection; Appendectomy; kc6 - Immunization history:: Client reports having NOT received the Covid vaccine. Flu vaccine is not up to date. - Social history:: Smoking status: Patient reports the use of cigarette tobacco products, smokes one pack cigarettes per day. Screenin:11 [facility] ED Fall Risk Assessment (Adult) History of falling in the last 3 months, bp including since admission No falls in past 3 months (0 pts). Abuse screen: Denies threats or abuse. Denies injuries from another. Nutritional screening: No deficits noted. Tuberculosis screening: No symptoms or risk factors identified. Assessment: 10:40 General: SEE TRIAGE NOTE. bp 12:29 Reassessment: PT RETURNED FROM CT. bp 13:58 GI: as6 Vital Signs: 10:15 BP 171 / 108; Pulse 78; Resp 16 S; Temp 97.8(TE); Pulse Ox 100% on R/A; Weight 86.18 kg kc6 (R); Height 5 ft. 9 in. (R); Pain 2/10; 12:24 BP 143 / 108; Pulse 64; Resp 16; Pulse Ox 97% ; bp 10:15 Body Mass Index 28.06 (86.18 kg, 175.26 cm) kc6 10:15 Pain Scale: Adult kc6 ED Course: 10:12 Patient arrived in ED. mr 10:14 Radames Figueredo MD is Attending Physician. kdr 10:16 Triage completed. kc6 10:16 Arm band placed on. kc6 10:57 Vitaliy Castro, TIFFANIE is Primary Nurse. bp 11:10 Inserted saline lock: 22 gauge in right forearm, using aseptic technique. Blood bp collected. 11:11 Patient has correct armband on for positive identification. bp 11:49 CT Abd/Pelvis - IV Contrast Only Sent. bp 11:59 CT Abd/Pelvis - IV Contrast Only In Process Unspecified. EDMS 13:57 No provider procedures requiring assistance completed. IV discontinued, intact, as6 bleeding controlled, No redness/swelling at site. Pressure dressing applied. Administered Medications: 12:16 Drug: NS 0.9% IV 1000 ml IV at 1 bolus Per protocol; 1000 mL bolus Route: IV; Rate: 1 bp bolus; Site: right forearm; 13:57 Follow up: Response: No adverse reaction; IV Status: Completed infusion; IV Intake: as6 1000ml 13:20 Drug: Ciprofloxacin PO 500 mg PO once Route: PO; bp 13:57 Follow up: Response: No adverse reaction as6 13:20 Drug: metroNIDAZOLE PO 500 mg PO once Route: PO; bp 13:57 Follow up: Response: No adverse reaction as6 13:20 Not Given (Patient Refused): norco10 mg-325 mg 1 tabs PO once bp 13:20 Drug: Famotidine IVP 20 mg IVP once; dilute with 10 mL 0.9% NaCl; give over 2 minutes bp Route: IVP; Site: right forearm; 13:54 Follow up: Response: No adverse reaction as6 13:54 Drug: Ketorolac IVP 15 mg IVP once Route: IVP; Site: right forearm; as6 13:54 Follow up: Response: No adverse reaction as6 Medication: 13:58 VIS not applicable for this client. as6 Intake: 13:57 IV: 1000ml; Total: 1000ml. as6 Outcome: 13:37 Discharge ordered by . kdr 13:58 Discharged to home ambulatory, as6 13:58 Condition: stable 13:58 Discharge instructions given to patient, Instructed on discharge instructions, follow up and referral plans. medication usage, Demonstrated understanding of instructions, follow-up care, medications, Prescriptions given X 5 13:59 Patient left the ED. as6 Signatures: Dispatcher [employer] EDMS Radames Figueredo MD MD kdr Rivera, Mary, Reg Reg Vitaliy Guzman, RN RN Max Chirinos RN RN as6 Aide Sanders RN RN kc6
== END ==
LOC: ER 10:09
DX: A09 Infectious gastroenteritis and colitis, unspecified (principal); F17.210 Nicotine dependence, cigarettes, uncomplicated; Z88.0 Allergy status to penicillin; Z28.310 Unvaccinated for COVID-19
CPT/HCPCS: 85025; 36415; 83690; 80053; 74177; Q9967; J7030